=== PATIENT | female | born 1970 | race Caucasian/White ===

== ENCOUNTER → 2019-01-18 14:07 | Outpatient (CLI) | payer MEDICAID, SELFPAY ==
--- NOTE | 2019-01-18 14:13 | RAD_ITS ---
STUDY: X-RAY - LUMBAR SPINE REASON FOR EXAM: Female, 48 years old. Low back pain TECHNIQUE: 5 view(s) of the lumbar spine were obtained. COMPARISON: None FINDINGS: There is no evidence of fracture or dislocation in the lumbar spine. The vertebral body heights are well-maintained. Mild disc space loss is present at the L5-S1 level. Mild osteophytosis is present from L4 through S1. RAD/L/S Spine Min 4 Views IMPRESSION: No fracture or dislocation in the lumbar spine. Mild degenerative changes from L4 through S1. Electronically Signed: Norris Morocho, at 17:44 EDT Tel , Service support ,
== END ==
PROVIDERS: Family Provider Family Medicine; PCP Family Medicine; Referring Provider Nurse Practitioner Adult Health; Visit Provider Nurse Practitioner Adult Health
DX: M54.5 Low back pain (principal)
CPT/HCPCS: 72110

== ENCOUNTER → 2019-02-09 12:39 | Outpatient (CLI) | payer MEDICAID, SELFPAY ==
--- NOTE | 2019-02-09 12:42 | BI_ITS ---
MAMMOGRAPHY - BILATERAL SCREENING REASON FOR EXAM: Female, 48 years old. Routine annual screening examination. PERTINENT HISTORY: Non-contributory. TECHNIQUE: Digital bilateral breast lauro (3D mammographic acquisition) in the CC and MLO projections. 2-D mediolateral oblique (MLO) and craniocaudad (CC) views of both breasts were obtained. CAD: Full Field Digital Mammography with Computer Added Detection was performed. COMPARISON: Comparison is made with prior study dated June 05, 2016. FINDINGS: Breast Composition: The breasts are extremely dense, which lowers the sensitivity of mammography. There are no dominant masses or suspicious calcifications. No other significant abnormalities are identified. There has been no significant change since the prior study. BI/SCREEN MAMM (CAD) W/LAURO BILAT IMPRESSION: Stable bilateral screening mammogram. Yearly follow-up mammogram recommended. (A) ASSESSMENT CATEGORY: BIRADS Category 1: Negative. A letter regarding these results will be sent to the patient by the facility within 30 days. Approximately 10% of breast cancers are not detected by mammography. A normal mammogram should not delay biopsy of a clinically suspicious abnormality. [id number] Electronically Signed: Franklin Hill, at 14:19 EDT , Service support ,
== END ==
PROVIDERS: Family Provider Family Medicine; PCP Family Medicine; Referring Provider Nurse Practitioner Adult Health; Visit Provider Nurse Practitioner Adult Health
DX: Z12.31 Encounter for screening mammogram for malignant neoplasm of breast (principal)
CPT/HCPCS: 77063; 77067

== ENCOUNTER 2019-07-07 11:00 | Outpatient (RCR) | payer MEDICAID, SELFPAY ==
--- NOTE | 2019-06-29 16:27 | HP.PTEVAL_ITS ---
Patient's Visit Information JANIS PAGE is a 48 year old F referred to Physical Therapy by ALMA ROSA Ibarra with a diagnosis of DEGENERATIVE OF LUMBOSACRAL DISC,LUMBAR RADICULOPATHY,STENOSIS. Date of Evaluation: 06/29/19 Physical Therapist: Kvng San, PT, Cert MDT, OCS - Visit Plan Frequency: 2x /Week Duration: 4 Weeks Plan: PATIENT IS HIGH IRRITABLE. PT INTERVENTIONS DLS,POSTURAL EX'S ,LE FLEXABLITY,LE STRENGTGHENING ,MODALTIES NEEDED - Subjective Findings: This 48 y/o female presents to physical therapy with lumbar pain. Patient has lumbar pain about 1 year 1/2. Patient intially see family DR tuttle mmeded pain management. Patient had x-rays DDD. Patient recommeded PT. Patient pain located symmtrical lumbar radiates right leg. Aggravating standing,walking,bending,lufting ,getting up from chair. Alleviating factors mobic. Occassional ,parathesia/tingling. Bowel/bladder -. Coughing/sneezing-. Patient pain affects job demands ,ADL'S and housework tasks. Patient pain affects QOL. VOCATION: unemployed. SOCAIL: single - Pain Bilateral Back Pain Intensity (Out of 10): 6 Pain Intensity Range: 10 - Objective POSTURE: mild foward posture. GAIT: reciprocal pattern. PALAPTION: tender L-S ,paraspinals. SYMMTRIES: align. MMT: quads/hams/hip 4-/5,ankle 4/5. FLEXABLITY: hams mild tight. LUMBAR ROM: flexion mod loss pain,severe loss extension,side glides mod loss. MUSCULAR ENDURANCE: abdominals poor - Special Tests L/S Slump test left side: Negative L/S Slump test right side: Negative L/S Left Straight Leg Raise: Positive L/S Right Straight Leg Raise: Positive Lumbar Standing: Flexion - Mechanical Response: No effect Lumbar Standing: Flexion - Symptoms During Testing: Increases Lumbar Standing: Flexion - Symptoms After Testing: Worse Lumbar Standing: Extension - Mechanical Response: No effect Lumbar Standing: Extension - Symptoms During Testing: Increases Lumbar Standing: Extension - Symptoms After Testing: Worse Lumbar Standing: Right Side Glides - Mechanical Response: No effect Lumbar Standing: Right Side [place] - Symptoms During Testing: No effect Lumbar Standing: Right Side [place] - Symptoms After Testing: No effect Lumbar Standing: Left Side [place] - Mechanical Response: No effect Lumbar Standing: Left Side [place] - Symptoms During Testing: No effect Lumbar Standing: Left Side [place] - Symptoms After Testing: No effect - Goals Goal 1:: Incdependant with HEP. Goal Time Frame: 4-6 Weeks Goal 2:: Decrease lumbar pain by 50% or > to improve function Goal Time Frame: 4-6 Weeks Goal 3:: Patient to improve lumbar ROM for function of recovery Goal Time Frame: 4-6 Weeks Goal 4:: Patient to improve LE strength 4/5 to improve function. Goal Time Frame: 4-6 Weeks Goal 5:: Patient to improve back owestry score by 5 points or > to improve function. Goal Time Frame: 4-6 Weeks - Rehabilitation Potential Physical Therapy Diagnosis: This patient has severe pain lumbar with poor ROM ,decrease strength,poor function of recovery impairs ADL'S and housework tasks thus benifit from skilled PT Rehabilitation Potential: Fair - Anticipated Interventions Patient/Client Instruction: Educate patient on: Condition, Plan of Care For the Purpose of:: To decrease pain, To increase ROM, To improve muscle performance and motor function, To improve ability to perform ADL's, To increase tolerance to activity/condition/position, To improve ability of physical actions for home/community/work/leisure, To improve health of tissue, To decrease soft tissue restriction, To increase flexibility/ROM, To improve ability to perform tasks related to life management Therapeutic Exercise to Include: Strength training, Postural training, Flexibilty training, Active ROM, Dynamic Lumbar Stabilization For the Purpose of:: To decrease pain, To increase ROM, To improve muscle performance and motor function, To improve ability to perform ADL's, To increase tolerance to activity/condition/position, To improve ability of physical actions for home/community/work/leisure, To increase flexibility/ROM, To improve ability to perform tasks related to life management TENS: Yes IF ES: Yes Cryotherapy (ice pack, ice massage): Yes Thermo therapy (hot pack): Yes Ultrasound (thermal/non thermal): Yes For the Purpose of:: To decrease pain, To decrease swelling/inflammation, To increase ROM, To improve nutrient delivery to tissue, To increase oxygenation perfusion, To improve health of tissue, To decrease soft tissue restriction Thank you for the opportunity to evaluate your patient. For Medicare and Medicare HMO plans, please review the plan of care and approve it. It will need to be FAXED BACK to us at [phone] for Medicare purposes. For Medicare only, by signing this I certify the plan of care. Please let me know if there are questions or concerns regarding this plan of care. Physician Signature: Date:
--- NOTE | 2019-08-18 09:17 | HP.PT.NRP ---
JANIS PAGE was seen in my office for initial evaluation on 06/29/19. The following Plan of Care was established for this patient: Initial Frequency: 2x /Week Initial Duration: 4 Weeks Patient/Client Instruction: Educate patient on: Condition, Plan of Care For the Purpose of:: To decrease pain, To increase ROM, To improve muscle performance and motor function, To improve ability to perform ADL's, To increase tolerance to activity/condition/position, To improve ability of physical actions for home/community/work/leisure, To improve health of tissue, To decrease soft tissue restriction, To increase flexibility/ROM, To improve ability to perform tasks related to life management Therapeutic Exercise to Include: Strength training, Postural training, Flexibilty training, Active ROM, Dynamic Lumbar Stabilization For the Purpose of:: To decrease pain, To increase ROM, To improve muscle performance and motor function, To improve ability to perform ADL's, To increase tolerance to activity/condition/position, To improve ability of physical actions for home/community/work/leisure, To increase flexibility/ROM, To improve ability to perform tasks related to life management TENS: Yes IF ES: Yes Cryotherapy (ice pack, ice massage): Yes Thermo therapy (hot pack): Yes Ultrasound (thermal/non thermal): Yes For the Purpose of:: To decrease pain, To decrease swelling/inflammation, To increase ROM, To improve nutrient delivery to tissue, To increase oxygenation perfusion, To improve health of tissue, To decrease soft tissue restriction This patient was last seen in our office 07/07/19. Pertinent comments regarding their Physical therapy will appear below: Patient seen for PT for back pain for HEP. But due to COVID 19 D/C At this point I will be discontinuing this patient from physical therapy. I would be happy to see this patient again in the future if found appropriate by the physician. Thank you! Kvng San, PT, Cert MDT, OCS
== END 2019-07-07 19:00 | disposition home or self-care (01) ==
LOC: PT 11:00
PROVIDERS: PCP Family Medicine; Referring Provider Nurse Practitioner Family; Visit Provider Nurse Practitioner Family
DX: M51.17 Intervertebral disc disorders with radiculopathy, lumbosacral region (principal); M47.27 Other spondylosis with radiculopathy, lumbosacral region; M48.07 Spinal stenosis, lumbosacral region; M46.96 Unspecified inflammatory spondylopathy, lumbar region
CPT/HCPCS: 97014; 97110; 97162; G0283

== ENCOUNTER → 2020-02-11 13:03 | Outpatient (CLI) | payer MEDICAID, SELFPAY ==
--- NOTE | 2020-02-11 13:05 | BI_ITS ---
MAMMOGRAPHY - BILATERAL SCREENING REASON FOR EXAM: Female, 49 years old. Routine annual screening examination. PERTINENT HISTORY: Non-contributory. TECHNIQUE: Digital bilateral breast lauro (3D mammographic acquisition) in the CC and MLO projections. 2-D mediolateral oblique (MLO) and craniocaudad (CC) views of both breasts were obtained. CAD: Full Field Digital Mammography with Computer Added Detection was performed. COMPARISON: Comparison is made with prior examination dated 02/09/2019 and 06/05/2016. FINDINGS: Breast Composition: The breasts are extremely dense, which lowers the sensitivity of mammography. There are no dominant masses or suspicious calcifications. Stable benign appearing right axillary lymph node. No other significant abnormalities are identified. There has been no significant change since the prior study. BI/SCREEN MAMM (CAD) W/LAURO BILAT IMPRESSION: Stable bilateral screening mammogram. Yearly follow-up mammogram recommended. (A) ASSESSMENT CATEGORY: BIRADS Category 2: Benign. A letter regarding these results will be sent to the patient by the facility within 30 days. Approximately 10% of breast cancers are not detected by mammography. A normal mammogram should not delay biopsy of a clinically suspicious abnormality. [id number] Electronically Signed: Franklin Hill, at 14:10 EDT , Service support ,
== END ==
PROVIDERS: PCP Family Medicine; Referring Provider Family Medicine; Visit Provider Family Medicine
DX: Z12.31 Encounter for screening mammogram for malignant neoplasm of breast (principal)
CPT/HCPCS: 77063; 77067

== ENCOUNTER 2020-08-17 12:13 | Emergency (ER) | payer MEDICAID, SELFPAY ==
[2020-08-17 12:14] VITALS: BP 119/72; PULSE 118; RESP 16; TEMP 36.4; O2SAT 97; BMI 20.9
--- NOTE | 2020-08-17 12:29 | RAD_ITS ---
STUDY: X-RAY CHEST REASON FOR EXAM: Female, 49 years old. Fever and cough TECHNIQUE: Single AP portable view of the chest. COMPARISON: Comparison is made with prior study 11/30/2016. FINDINGS: Hyperinflation. The lungs are clear. There is no demonstrated pleural abnormality. Normal size heart. Normal mediastinum and sol. Normal visualized pulmonary arteries. Normal visualized aortic arch and descending thoracic aorta. Normal visualized thoracic spine. Normal visualized ribs, clavicles, and shoulders. There is no demonstrated abnormality of the visualized soft tissue structures of the upper abdomen. RAD/Chest 1 View (Portable) IMPRESSION: Hyperinflation. The lungs are clear. Electronically Signed: Franklin Hill MD at 13:13 EDT , Service support ,
--- NOTE | 2020-08-17 12:30 | ED.VISSUMM ---
- ER Visit Summary Date of Service: 08/17/20 Chief Complaint: Subjective fever and chills History of Present Illness: The patient is a 49 F has medical history of degenerative disc disease and prior hysterectomy. Patient states for 2 days has had subjective fever and chills. She denies any nausea, vomiting or diarrhea. Says she had a mild earache on the right. Mild nonproductive cough. She denies sore throat. She denied any dysuria to me. Does state that she has had body aches. Did not get a Covid vaccination as of yet. Denies any abdominal pain. Physical Examination: Middle-aged female no acute distress vital signs stable afebrile. Currently temperature 97.5 orally. Pulse ox 97% on room air no signs hypoxia. She is in no distress. H EENT exam unremarkable. Moist mucous membranes. Posterior pharynx unremarkable. Neck nontender no meningismus. No lymphadenopathy. Lungs clear to auscultation bilaterally. Heart regular rhythm rate about 115 no murmur. Chest were nontender. Abdomen soft nontender normal bowel sounds no peritoneal signs. Back nontender. No CVA tenderness. Patient is moving all 4 extremities. Neurovascularly intact. No edema. No cords. Skin no rashes. Neurologically she is awake alert with no focal motor deficits. Test Results: Chest x-ray portable 1 view interpreted by myself and radiology shows no acute abnormality. No infiltrate. Normal cardiac silhouette. CBC white count of 2.8. Hemoglobin 14. No bands. Chemistries unremarkable normal creatinine and gap. UA negative no signs of infection no nitrates or white cells no bacteria lactate normal at 0.8. Rapid Covid negative. Repeat exam patient is doing well. She clinically does not look septic. Her exam is unchanged. She and I discussed all of her test results. She is comfortable being discharged home. Emergency Department Course and Treatment: Middle-aged female with subjective fever and chills. No objective findings of a bacterial infection at this time. She will undergo laboratory evaluation with chest x-ray and urinalysis. Treated with IV fluids. Treatment Plan: Symptomatic treatment. Plenty of fluids and rest. Tylenol and Motrin as needed. Follow-up if not improving or return if feeling worse. Disposition: Discharge Impression: Fever Secondary to viral syndrome This note was generated with [employer] software. It may contain incorrect words, spelling, and punctuation that were not noted in review of the chart prior to signing ED Disposition - Plan for ED Patient: Referrals: Gee Reid MD [STAFF PHYSICIAN] -
[2020-08-17] MEDS: 0.9% Normal Saline 1,000 ML 1000 ML IV (12:52)
[2020-08-17 13:03] LABS: Absolute Lymphocyte Count 0.73 X10^3/uL (0.83-4.51); Absolute Neutrophil Count 1.7 X10^3/uL (2.0-7.7); Basophil# 0.02 X10^3/uL; Basophil% 0.7 % (0-1); Eosinophil# 0.01 X10^3/uL; Eosinophils% 0.4 % (0-5); Lymphocyte # 0.73 X10^3/ul (0.83-4.51); Lymphocyte % 26.2 % (19-41); Mean Corp Hgb Conc 32.6 g/dL (32-36); Mean Corpuscular Hgb 30.4 pg (27.0-32.0); Mean Corpuscular Volume 93.5 fL (81-99); Mean Platelet Vol. 10.2 fl (6.2-12.0); Monocyte# 0.34 X10^3/uL; Monocyte% 12.2 % (0-10); NRBC Flagged by Analyzer 0 % (0-5); Neutrophil # 1.68 X10^3/uL (2.7-7.7); Neutrophil % 60.1 % (47-70); Platelet Count 197 K/mm3 (150-450); RBC Distribution Width CV 13.4 % (11.6-14.6); RBC Distribution Width SD 45.6 fl (35.1-43.9); White Blood Count 2.8 K/mm3 (4.4-11.0)
[2020-08-17 13:17] LABS: Anion Gap 4 (5-15); BUN 8 mg/dL (7-18); BUN/Creat Ratio 7.1 RATIO (10-20); Calcium,Total 8.7 mg/dL (8.5-10.1); Chloride 102 mmol/L (98-107); Creatinine, Serum 1.13 mg/dL (0.55-1.02); EST Glomerular Filtration Rate 54 mL/min (>60); Est Glom Filt Rate - Afr Amer 66 mL/min (>60); Estimated Creatinine Clearance 56.06 ml/min; Glucose 83 mg/dL (74-106); Potassium 3.9 mmol/L (3.5-5.1); Sodium Level 134 mmol/L (136-145)
[2020-08-17 13:26] LABS: Lactic Acid 0.8 mmol/L (0.4-1.9)
[2020-08-17] MEDS: Acetaminophen 500 MG Tablet 1000 MG PO (13:41)
[2020-08-17 13:44] VITALS: BP 99/60; PULSE 80; RESP 18; TEMP 38.1; O2SAT 100
[2020-08-17 14:19] LABS: Bacteria 0 SEEN /hpf (None Seen); Mucous, Urine 0 SEEN /hpf (<or=2+); Red Blood Cells-Urine 0 SEEN /hpf (0-5); White Blood Cells 0 SEEN /hpf (0-5)
[2020-08-17 14:29] LABS: Color, Urine Yellow (Yellow); Glucose, Dipstick Normal (Normal); Ketone-Dipstick Negative (Negative); Leukocyte Esterase-Dipstick Negative /ul (Negative); Nitrite-Dipstick Negative (Negative); Occult Blood-Urine 10 /ul (Negative); Protein-Dipstick Negative (Negative); Urine Bilirubin Dipstick Negative (Negative); Urine Clarity Sl. Cloudy (Clear); Urine Urobilinogen Normal (Normal)
[2020-08-17 14:39] LABS: Squamous Epithelial Cells - UA 0-5 SEEN /hpf (5-10)
--- NOTE | 2020-08-17 14:50 | ED.DEP ---
ED Disposition - Plan for ED Patient: Disposition: Home or Assisted Living Instructions: ED Viral Syndrome (Adult) Referrals: Gee Reid MD [STAFF PHYSICIAN] - 3-5 Days if not improving Additional Instructions: Plenty of fluids and rest. Tylenol and Motrin as needed. Follow-up with your doctor if not improving. Return emergency department feeling a lot worse.
== END 2020-08-17 15:01 | disposition home or self-care (01) ==
PROVIDERS: Emergency Provider Emergency Medicine; PCP Family Medicine
DX: R50.9 Fever, unspecified (principal); B34.9 Viral infection, unspecified; F17.200 Nicotine dependence, unspecified, uncomplicated
CPT/HCPCS: 71045; 80048; 81001; 83605; 85025; 87426; 99284; J7030

== ENCOUNTER → 2020-09-18 15:36 | Outpatient (CLI) | payer MEDICAID, SELFPAY ==
--- NOTE | 2020-09-18 15:40 | RAD_ITS ---
STUDY: X-RAY - RIGHT HAND, ATTENTION SECOND FINGER REASON FOR EXAM: Female, 49 years old. PAIN TECHNIQUE: 4 view(s) of the finger were obtained. COMPARISON: None. FINDINGS: No acute fracture, dislocation or osseous destruction. No significant joint space narrowing. No significant productive changes. No significant soft tissue swelling. RAD/Finger(s) Min 2 Views IMPRESSION: Second digit intact Electronically Signed: Derek Alvarenga DO at 8:58 EDT Tel , Service support ,
== END ==
PROVIDERS: PCP Family Medicine; Referring Provider Family Medicine; Visit Provider Family Medicine
DX: M79.644 Pain in right finger(s) (principal)
CPT/HCPCS: 73140

== ENCOUNTER 2020-10-18 13:00 | Outpatient (RCR) | payer MEDICAID, SELFPAY ==
--- NOTE | 2020-06-02 15:21 | HP.PTEVAL ---
Patient's Visit Information JANIS PAGE is a 49 year old F referred to Physical Therapy by Dr. Maria T Menezes MD with a diagnosis of LBP. Date of Evaluation: 06/02/20 Physical Therapist: SHANNAN Nair - Visit Plan Frequency: 2x /Week Duration: 6 Weeks Plan: 2X/ week for 6 weeks for Neutral spine core stability and then progress to some extension biased exercises, LE strengthening with ab bracing, postural exercises, general mobility with HEP. May use heat as needed post treatment. - Subjective Pt reports that her Low back hurts and B butt bones hurts. 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 IF she sits wrong, moves wron it cane hurt. She got an x-ray. Current symptoms: Her waist on her back and her butt bone on the R hurts. She has to do her day slow cause she can not do what she used to do. She has to watch how long she sits and what she sits on. The X-ray showed deteriorating discs. wants her to go to PT and see how she does. She has been having trouble with her bowls do not move also. She takes x-lax and fiber meds for that but she feels that that is realted to her back as well but does not. pushed on hr back during the exam and her bowls are moving better and now she thinks it is because of her back. 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 In and out of her car feels it pull in her back. She feels that she gets crushing in her spine when she bends forward. She does not wear shoes that have to tie cause she can't do it. Stairs: she has a few steps at home with a railing. She has no N&T. She has no weakness in her legs currently. She does not want to do AT now cause it is too cold out now. Pt reports that she has had to adjust her life to being slow so she is not in pain. If pt sleeps on her R side it will wake her up. - Pain Back pain Pain Intensity (Out of 10): 4 R hip pain Pain Intensity (Out of 10): 3 - Objective Gait: walks with a normal gait pattern. Trunk AROM: Flexion 50%, Ext to neutral, SB B 25%, Rot B 25%. L LE MMT: hip flex 4/5, knee ext 4/5, Knee flexion 4-/5, hip abd 4/5, hip ext 3-/5. R LE MMT: hip flex 4/5, knee ext 4/5, knee flexion 4/5, hip abd 4/5, hip ext 3-/4. Patellar DTR's: B 2+/3. Prone on elbows: increase tightness across the LB after being in that position for 15 seconds. Bridges: pt is not able to do a bridge due to pain and weakness. Sit to stand: SLR... + on the R for R sided LB and R hip pain and - on the L. Slump test... negative B - Goals Goal 1:: I HEP Goal Time Frame: 4-6 Weeks Goal 2:: Increase trunk AROM by 25% in each plane (Trunk AROM: Flexion 50%, Ext to neutral, SB B 25%, Rot B 25%) Goal Time Frame: 4-6 Weeks - Rehabilitation Potential Rehabilitation Potential: Good - Anticipated Interventions Patient/Client Instruction: Educate patient on: Condition For the Purpose of:: To decrease pain, To increase ROM, To improve nutrient delivery to tissue, To improve muscle performance and motor function, To improve ability to perform ADL's, To increase tolerance to activity/condition/position, To improve ability of physical actions for home/community/work/leisure, To improve gait and locomotor functions, To improve health of tissue, To decrease soft tissue restriction, To increase flexibility/ROM Therapeutic Exercise to Include: Strength training, Postural training, Flexibilty training, Gait and locomotor training, Neuromotor development, Passive ROM, Active ROM, Dynamic Lumbar Stabilization, [place] Exercises For the Purpose of:: To decrease pain, To decrease swelling/inflammation, To increase ROM, To improve nutrient delivery to tissue, To improve muscle performance and motor function, To improve ability to perform ADL's, To increase tolerance to activity/condition/position, To improve performance and independence with ADL's, To decrease level of supervision to perform tasks, To improve ability of physical actions for home/community/work/leisure, To improve health of tissue, To decrease soft tissue restriction, To increase flexibility/ROM Functional Training to Include: Gait training For the Purpose of:: To improve gait and locomotor functions Manual Therapy Techniques to Include: Passive ROM, Soft tissue mobilization For the Purpose of:: To decrease pain, To increase ROM, To improve nutrient delivery to tissue, To improve muscle performance and motor function, To improve ability to perform ADL's, To increase tolerance to activity/condition/position, To decrease soft tissue restriction, To increase flexibility/ROM Thermo therapy (hot pack): Yes For the Purpose of:: To increase ROM, To improve nutrient delivery to tissue, To increase oxygenation perfusion Thank you for the opportunity to evaluate your patient. For Medicare and Medicare HMO plans, please review the plan of care and approve it. It will need to be FAXED BACK to us at [phone] for Medicare purposes. For Medicare only, by signing this I certify the plan of care. Please let me know if there are questions or concerns regarding this plan of care. Physician Signature: Date:
--- NOTE | 2020-10-18 13:35 | HP.PTDCSUM ---
It has been my pleasure to treat JANIS PAGE referred by Dr. Maria T Menezes MD, with the diagnosis of LBP for a total of 14 visit(s). Discharge Date: 10/18/20 Please see the following information for a summary of their discharge status. Subjective: Pt reports that she likes the exercises she is doing at home. Back pain Pain Intensity (Out of 10): 2 R hip pain Pain Intensity (Out of 10): 0 % Improvement: 85 Objective/Function: Pt did HEP without any signs of pain. She verbally understood HEP and issued pictures and green t-band for mid row ADDED BRIDGES for home. Trunk AROM: flex 50%, ext 25%, SB B 75% Goal 1:: I HEP Goal Progress: Goal Met Goal 2:: Increase trunk AROM by 25% in each plane (Trunk AROM: Flexion 50%, Ext to neutral, SB B 25%, Rot B 25%) Goal 3:: Be able to tolerate core stability exercises in standing Goal Progress: Goal Met Plan: Give additional HEP next visit. 2X/ week for 6 weeks for Neutral spine core stability and then progress to some extension biased exercises, LE strengthening with ab bracing, postural exercises, general mobility with HEP. May use heat as needed post treatment. Discharge Comments: DC PT to HEP If there are questions or concerns regarding this patient's physical therapy, please feel free to call me at [phone]. Thank you for the referral of this patient. Sincerely, Martha Kimball, MPT
== END 2020-10-18 19:00 | disposition home or self-care (01) ==
LOC: PT 13:00
PROVIDERS: PCP Family Medicine; Referring Provider Family Medicine; Visit Provider Family Medicine
DX: M54.5 Low back pain (principal)
CPT/HCPCS: 97110; 97161

== ENCOUNTER → 2022-03-05 | Outpatient (CLI) | payer MEDICAID, SELFPAY ==
--- NOTE | 2022-03-05 17:18 | MRI_ITS ---
STUDY: MRI BRAIN WITH AND WITHOUT CONTRAST REASON FOR EXAM: Female, 51 years old. new onset migraine TECHNIQUE: Standardized multiplanar fat and water weighted pulse sequences were obtained. IV 13ml Clariscan was administered for the contrast portion of the examination. COMPARISON: None. FINDINGS: Normal size of the ventricles and extra-axial spaces for the patient''s age. Normal white matter tracts of the supratentorial brain. Normal bilateral basal ganglia. Normal thalami. There is no extra-axial fluid accumulation. Normal flow voids within the major intracranial circulation suggesting patency by spin echo criteria. Normal venous enhancement. There is no enhancing intra-axial or extra-axial abnormality. Normal sella turcica, pituitary gland, infundibular stalk, optic chiasm and hypothalamus. Normal tectal plate and pineal gland. Normal midbrain, dusty and medulla. Normal cerebellum. Normal basal cisterns. Normal bilateral temporal bones. Normal bilateral internal auditory canals. No demonstrated orbital abnormality, within the constraints of a routine brain study. Normal visualized paranasal sinuses. Normal calvarium and skull base. Normal visualized soft tissue structures. Normal visualized upper cervical spine. MRI/Brain W/WO Contrast IMPRESSION: Normal unenhanced and enhanced MRI of the brain. Electronically Signed: Norris Almaraz MD at 20:55 EST ,
== END | disposition home or self-care (01) ==
PROVIDERS: PCP Family Medicine; Visit Provider Family Medicine
DX: G43.009 Migraine without aura, not intractable, without status migrainosus (principal)
CPT/HCPCS: 70553; A9575

== ENCOUNTER 2022-03-30 19:22 | Emergency (ER) | payer MEDICAID, SELFPAY ==
[2022-03-30 19:23] VITALS: BP 92/80; PULSE 109; RESP 18; TEMP 36.8; O2SAT 100; BMI 21.7
--- NOTE | 2022-03-30 19:37 | EX.ED.VIS.UR ---
HPI HPI - URI History of Present Illness Chief Complaint: Nausea/Vomiting Narrative Narrative: 51-year-old female presenting with cough, chills, body aches which started on . She states that she has Naprosyn at home and is only been trying this sporadically. She states she does not have any Tylenol and was able to get any. She is not sure what her temperature has actually been. When she arrived to the emergency room she stated that she started to have vomiting. She has not been vomiting for the last couple days although she does admit to decreased p.o. intake. She is making urine and stool. She does not have any chest pain or shortness of breath but does admit to a cough that is nonproductive. No abdominal pain. She has no urinary complaints. ROS ROS ED Constitutional Constitutional ED: Reports chills, fever(s) and subjective Eyes Eyes: Denies change in vision ENT ENT ED: Reports rhinorrhea Cardiovascular Cardiovascular: Denies chest pain or palpitations Respiratory/Chest Respiratory/Chest: Reports cough; Denies dyspnea Gastrointestinal Gastrointestinal: Reports nausea and vomiting; Denies abdominal pain Genitourinary Genitourinary ED: Denies dysuria or hematuria Musculoskeletal Musculoskeletal: Denies arthralgias Integumentary Denies abscess Neurologic Neurologic: Reports headache(s); Denies paresthesias or weakness Psychiatric Psychiatric: Denies anxiety or depression PFSH [facility] Home Medications multivitamin (Daily Multiple tablet) 1 ea PO DAILY 09/10/15 [History Last Taken 11/26/16 08:00 1 tab] calcium polycarbophil 625 mg tablet (Fiber-Caps (ca polycarbophil)) 625 mg PO DAILY 11/30/16 [History Last Taken 11/30/16 08:00 625 mg] sennosides 8.6 mg-docusate sodium 50 mg tablet (Stool Softener-Stimulant Laxative) 1 tab PO BID ##30 12/03/16 [Rx Last Taken Unknown] meloxicam 15 mg tablet 15 mg PO Q6H PRN PRN Pain 1-10 Or Fever 08/17/20 [History Last Taken Unknown] Allergy/AdvReac Type Severity Reaction Status Date / Time levofloxacin [From Levaquin] Allergy Anaphylaxis Verified 03/30/22 19:23 Penicillins Allergy Anaphylaxis Verified 03/30/22 19:23 Social History Smoking Status: Current every day smoker tobacco type: cigarettes EXAM Physical Exam Const Vital Signs: 03/30/22 19:23 Temperature 98.3 F Temperature Source Temporal Pulse Rate 109 H Respiratory Rate 18 Blood Pressure 92/80 Blood Pressure Mean 84 Pulse Ox 100 Oxygen Delivery Method Room Air Positive well nourished General Appearance ED: NAD; Negative for pallor HEENT Reports moist mucous membranes normocephalic Eyes PERRL and EOMs intact bilaterally Neck no lymphadenopathy and no meningeal signs Resp normal respiratory effort and clear to auscultation bilaterally Auscultation: Negative for rales, rhonchi or wheezes Cardio Rate: tachycardic Rhythm: regular rhythm GI non-tender Extremity normal to inspection Neuro oriented x3 and CN's II-XII intact bilaterally Sensorium / Orientation: alert Psych mental status grossly normal Skin General Skin Exam: Negative for jaundice or pallor MDM MDM MDM Narrative Medical decision making narrative: 51-year-old female presenting with cough, fever, chills, myalgias. She reports she started vomiting when she got to the emergency room. She states she does feel like she is dehydrated because she has decreased p.o. intake. No IV was established and she had her normal saline as well as Zofran and Toradol. Will obtain basic lab work and viral testing. CBC shows leukopenia. Otherwise this is within normal limits. Electrolytes are normal. Creatinine 1.12 and at baseline. LFTs are normal. I obtained a chest x-ray and on my interpretation there is no acute cardiopulmonary process and radiology interpreted this and agrees. Patient tested negative for RSV and COVID today but is positive for influenza A. She is feeling improved after treatment. I will discharge her home with Zofran. She is to alternate Tylenol and ibuprofen. Impression: 1. Nausea/vomiting 2. Leukopenia 3. Influenza A Lab Data Attestation: I reviewed the patient's lab results. Labs: Laboratory Results - last 24 hr 03/30/22 03/30/22 20:00 20:00 WBC 3.5 L RBC 4.68 Hgb 14.2 Hct 42.7 MCV 91.2 MCH 30.3 MCHC 33.3 RDW Std Deviation 45.9 H RDW Coeff of Otilio 13.6 Plt Count 184 MPV 10.4 Immature Gran % (Auto) 0.300 Neut % (Auto) 57.1 Lymph % (Auto) 27.8 [place] % (Auto) 14.2 H Eos % (Auto) 0.0 Baso % (Auto) 0.6 Absolute Neuts (auto) 2.0 Absolute Lymphs (auto) 0.96 Nucleated RBC % 0 Sodium 136 Potassium 4.1 Chloride 103 Carbon Dioxide 29.0 Anion Gap 4 L BUN 11 Creatinine 1.12 H Estim Creat Clear Calc 55.63 Est GFR (MDRD) Af Amer 66 Est GFR (MDRD) Non-Af 54 L BUN/Creatinine Ratio 9.8 L Glucose 103 Calcium 9.1 Total Bilirubin 0.30 AST 35 ALT 31 Alkaline Phosphatase 67 Total Protein 7.0 Albumin 3.7 Globulin 3.3 Albumin/Globulin Ratio 1.1 Radiography Diagnostic Testing: Clinical Impression(s) from Imaging Studies Chest X-Ray 03/30/22 20:30 IMPRESSION: Normal x-ray examination of the chest. Electronically Signed: Norris Almaraz MD at 20:49 EST Reading Location ID and State: [address] [place] [address] , Service support , Discharge Plan Triage Chief Complaint: Nausea/Vomiting Other Complaint: Cold Sx Cough ED Provider: Antione Delgado Dx/Rx/DC Orders Prescriptions: No Action multivitamin [Daily Multiple] 1 EACH tablet 1 ea PO DAILY calcium polycarbophil [Fiber-Caps (ca polycarbophil)] 625 MG tablet 625 mg PO DAILY sennosides-docusate sodium [Stool Softener-Stimulant Laxat] 1 TABLET tablet 1 tab PO BID Qty: 30 0RF meloxicam 15 MG tablet 15 mg PO Q6H PRN PRN (Reason: Pain 1-10 Or Fever) Primary Care Provider: Maria T Menezes Referrals: Maria T Menezes MD [Primary Care Provider] -
[2022-03-30] MEDS: 0.9% Normal Saline 1,000 ML 999 ML IV (20:12)
[2022-03-30] MEDS: Ketorolac 15 MG/ML Vial IV (20:13)
[2022-03-30] MEDS: Ondansetron 4 MG/2 ML Vial IV (20:13)
[2022-03-30 20:25] LABS: Absolute Lymphocyte Count 0.96 X10^3/uL (0.83-4.51); Basophil# 0.02 X10^3/uL; Basophil% 0.6 % (0-1); Hematocrit 42.7 % (37-47); Hemoglobin 14.2 g/dL (12.0-15.0); Lymphocyte # 0.96 X10^3/ul (0.83-4.51); Lymphocyte % 27.8 % (19-41); Mean Corp Hgb Conc 33.3 g/dL (32-36); Mean Corpuscular Hgb 30.3 pg (27.0-32.0); Mean Corpuscular Volume 91.2 fL (81-99); Mean Platelet Vol. 10.4 fl (6.2-12.0); Monocyte# 0.49 X10^3/uL; Monocyte% 14.2 % (0-10); NRBC Flagged by Analyzer 0 % (0-5); Neutrophil # 1.97 X10^3/uL (2.7-7.7); Neutrophil % 57.1 % (47-70); Platelet Count 184 K/mm3 (150-450); RBC Distribution Width CV 13.6 % (11.6-14.6); RBC Distribution Width SD 45.9 fl (35.1-43.9); Red Blood Count 4.68 M/mm3 (4.2-5.4); White Blood Count 3.5 K/mm3 (4.4-11.0)
--- NOTE | 2022-03-30 20:30 | RAD_ITS ---
STUDY: X-RAY CHEST REASON FOR EXAM: Female, 51 years old. cough TECHNIQUE: AP portable COMPARISON: 08/17/2020 FINDINGS: The lungs are clear and expanded. There is no demonstrated pleural abnormality. Normal size heart. Normal mediastinum and sol. Normal visualized pulmonary arteries. Normal visualized aortic arch and descending thoracic aorta. Normal visualized thoracic spine. Normal visualized ribs, clavicles, and shoulders. There is no demonstrated abnormality of the visualized soft tissue structures of the upper abdomen. RAD/Chest 1 View (Portable) IMPRESSION: Normal x-ray examination of the chest. Electronically Signed: Norris Almaraz MD at 20:49 EST ,
[2022-03-30 21:00] LABS: ALB/GLOB Ratio 1.1 RATIO (0.9-2.4); AST(SGOT) 35 U/L (15-37); Alanine Aminotransfer ALT/SGPT 31 U/L (13-56); Albumin, Serum 3.7 g/dL (3.2-5.0); Alkaline Phosphatase 67 U/L (45-117); Anion Gap 4 (5-15); BUN 11 mg/dL (7-18); BUN/Creat Ratio 9.8 RATIO (10-20); Calcium,Total 9.1 mg/dL (8.5-10.1); Chloride 103 mmol/L (98-107); Creatinine, Serum 1.12 mg/dL (0.55-1.02); EST Glomerular Filtration Rate 54 mL/min (>60); Est Glom Filt Rate - Afr Amer 66 mL/min (>60); Estimated Creatinine Clearance 55.63 ml/min; Globulin 3.3 g/dL (2.2-4.2); Glucose 103 mg/dL (74-106); Potassium 4.1 mmol/L (3.5-5.1); Sodium Level 136 mmol/L (136-145)
== END 2022-03-30 22:06 | disposition home or self-care (01) ==
PROVIDERS: Emergency Provider Student in an Organized Health Care Education/Training Program; PCP Family Medicine; Visit Provider Student in an Organized Health Care Education/Training Program
DX: R11.2 Nausea with vomiting, unspecified (principal); J10.1 Influenza due to other identified influenza virus with other respiratory manifestations; F17.210 Nicotine dependence, cigarettes, uncomplicated; D72.819 Decreased white blood cell count, unspecified
CPT/HCPCS: 71045; 80053; 85025; 87428; 87807; 96374; 96375; 99282; J7030; A4216; J2405

== ENCOUNTER 2022-04-22 16:23 | Emergency (ER) | payer MEDICAID, SELFPAY ==
[2022-04-22 16:26] VITALS: BP 117/88; PULSE 109; RESP 14; TEMP 36.6; O2SAT 98; BMI 23.6
== END 2022-04-22 18:30 | disposition left against medical advice (07) ==
LOC: ED 21:22
PROVIDERS: PCP Family Medicine
DX: Z53.21 Procedure and treatment not carried out due to patient leaving prior to being seen by health care provider (principal)

== ENCOUNTER 2022-04-22 21:15 | Emergency (ER) | payer MEDICAID, SELFPAY ==
[2022-04-22 21:16] VITALS: BP 103/82; PULSE 98; RESP 15; TEMP 36.8; O2SAT 100; BMI 21.7
[2022-04-22 22:15] LABS: Red Blood Cells-Urine 0 SEEN /hpf (0-5)
--- NOTE | 2022-04-22 22:17 | CT_ITS ---
INDICATION: pain EXAMINATION: CT ABDOMEN AND PELVIS WITHOUT CONTRAST - CT Abdomen And Pelvis W/O Contrast Injection TECHNIQUE: Helically acquired images were obtained of the abdomen and pelvis without oral or IV contrast. A radiation dose optimization technique was used for this scan. IV Contrast dosage and agent: None. Oral contrast: None. COMPARISON: CT abdomen and pelvis 12/01/2016. FINDINGS: LOWER CHEST: Minimal dependent atelectasis. LIVER: Grossly unremarkable. GALLBLADDER AND BILIARY TREE: Grossly unremarkable. PANCREAS: Grossly unremarkable. SPLEEN: Grossly unremarkable. ADRENAL GLANDS: Grossly unremarkable. KIDNEYS AND URETERS: No calculi demonstrated. No hydronephrosis. PERITONEUM: No free air. No free fluid. BOWEL: No bowel obstruction. APPENDIX: Visualized and unremarkable. No evidence of acute appendicitis. VESSELS: Abdominal aorta is normal caliber. REPRODUCTIVE ORGANS: Uterus not identified. URINARY BLADDER: Minimally distended. ABDOMINAL WALL: Unremarkable. BONES: Degenerative changes in the lower lumbar spine. CT/Abdomen/Pelvis without Cont IMPRESSION: No acute findings. Electronically Signed: July Alexandra MD at 23:08 EST ,
[2022-04-22 22:19] LABS: Color, Urine Yellow (Yellow); Glucose, Dipstick Normal (Normal); Ketone-Dipstick 5 mg/dl (Negative); Leukocyte Esterase-Dipstick 25 /ul (Negative); Nitrite-Dipstick Negative (Negative); Occult Blood-Urine Negative /ul (Negative); Protein-Dipstick 30 mg/dl (Negative); Urine Clarity Sl. Cloudy (Clear); Urine Urobilinogen 4 mg/dl (Normal)
[2022-04-22] MEDS: 0.9% Normal Saline 1,000 ML 150 ML IV (22:20)
[2022-04-22] MEDS: Ketorolac 30 MG/ML Syringe IV (22:25)
[2022-04-22] MEDS: Ondansetron 4 MG/2 ML Vial IV (22:26)
[2022-04-22 22:34] LABS: Urine Bilirubin Dipstick 1 mg/dL (Negative)
[2022-04-22 22:35] LABS: Bacteria 1+ /hpf (None Seen); Mucous, Urine 4+ /hpf (<or=2+); Squamous Epithelial Cells - UA 0-5 SEEN /hpf (5-10); White Blood Cells 0-5 SEEN /hpf (0-5)
[2022-04-22 22:42] LABS: Absolute Lymphocyte Count 2.76 X10^3/uL (0.83-4.51); Absolute Neutrophil Count 2.9 X10^3/uL (2.0-7.7); Basophil# 0.04 X10^3/uL; Basophil% 0.6 % (0-1); Eosinophil# 0.09 X10^3/uL; Eosinophils% 1.4 % (0-5); Hematocrit 36.4 % (37-47); Hemoglobin 11.8 g/dL (12.0-15.0); Lymphocyte # 2.76 X10^3/ul (0.83-4.51); Lymphocyte % 43.5 % (19-41); Mean Corp Hgb Conc 32.4 g/dL (32-36); Mean Corpuscular Hgb 30.1 pg (27.0-32.0); Mean Corpuscular Volume 92.9 fL (81-99); Mean Platelet Vol. 10.2 fl (6.2-12.0); Monocyte# 0.52 X10^3/uL; Monocyte% 8.2 % (0-10); NRBC Flagged by Analyzer 0 % (0-5); Neutrophil # 2.93 X10^3/uL (2.7-7.7); Neutrophil % 46.1 % (47-70); Platelet Count 251 K/mm3 (150-450); RBC Distribution Width CV 13.5 % (11.6-14.6); RBC Distribution Width SD 45.7 fl (35.1-43.9); Red Blood Count 3.92 M/mm3 (4.2-5.4); White Blood Count 6.4 K/mm3 (4.4-11.0)
[2022-04-22 23:06] LABS: AST(SGOT) 18 U/L (15-37); Alanine Aminotransfer ALT/SGPT 21 U/L (13-56); Albumin, Serum 3.4 g/dL (3.2-5.0); Alkaline Phosphatase 71 U/L (45-117); Anion Gap 4 (5-15); BUN 27 mg/dL (7-18); BUN/Creat Ratio 24.1 RATIO (10-20); Calcium,Total 9.1 mg/dL (8.5-10.1); Chloride 108 mmol/L (98-107); Creatinine, Serum 1.12 mg/dL (0.55-1.02); EST Glomerular Filtration Rate 54 mL/min (>60); Est Glom Filt Rate - Afr Amer 66 mL/min (>60); Estimated Creatinine Clearance 55.63 ml/min; Globulin 3.1 g/dL (2.2-4.2); Glucose 130 mg/dL (74-106); Lipase 108 U/L (73-393); Protein, Total 6.5 g/dL (6.4-8.2); Sodium Level 139 mmol/L (136-145)
--- NOTE | 2022-04-22 23:49 | EDS_ITS ---
HPI History of Present Illness Chief Complaint: Flank Pain Detail of Chief Complaint: Back pain Informant: patient Onset/Context/Timing Onset: Today Context: Gradual Onset Current Severity: Moderate Maximum Severity: Moderate Narrative Narrative: Patient presents with back pain that started mid afternoon. She states she recently became initially that this was the cause of her back pain. She has tried Tylenol without significant improvement. She now states that she has some pain in her abdomen as well and is concerned that she may have pyelonephritis. She denies recent fall or injury. [facility] Medical History Degenerative disc disease Home Medications multivitamin (Daily Multiple tablet) 1 ea PO DAILY 09/10/15 [History Last Taken 11/26/16 08:00 1 tab] calcium polycarbophil 625 mg tablet (Fiber-Caps (ca polycarbophil)) 625 mg PO DAILY 11/30/16 [History Last Taken 11/30/16 08:00 625 mg] sennosides 8.6 mg-docusate sodium 50 mg tablet (Stool Softener-Stimulant Laxative) 1 tab PO BID ##30 12/03/16 [Rx Last Taken Unknown] meloxicam 15 mg tablet 15 mg PO Q6H PRN PRN Pain 1-10 Or Fever 08/17/20 [History Last Taken Unknown] ondansetron 4 mg disintegrating tablet 4 mg PO Q8H PRN nausea and vomiting #10 tabs 03/30/22 [Rx Last Taken Unknown] lidocaine 5 % topical patch (Lidoderm) 1 patch topical DAILY #15 ea 04/22/22 [Rx Last Taken Unknown] Allergy/AdvReac Type Severity Reaction Status Date / Time levofloxacin [From Levaquin] Allergy Anaphylaxis Verified 04/22/22 21:22 Penicillins Allergy Anaphylaxis Verified 04/22/22 21:22 Social History Smoking Status: Current every day smoker tobacco type: cigarettes ROS ROS ED Constitutional Constitutional ED: Denies chills or fever(s) Eyes Eyes: Denies change in vision or discharge from eye(s) ENT ENT ED: Denies discharge from eye(s), rhinorrhea or sore throat Cardiovascular Cardiovascular: Denies chest pain or palpitations Respiratory/Chest Respiratory/Chest: Denies cough or dyspnea Gastrointestinal Gastrointestinal: Reports abdominal pain; Denies diarrhea, nausea or vomiting Genitourinary Genitourinary ED: Reports other Details: Decreased urine output. Musculoskeletal Musculoskeletal: Reports back pain; Denies extremity pain Integumentary Denies Abrasions or rash Neurologic Neurologic: Denies headache(s) or weakness Psychiatric Psychiatric: Denies anxiety or depression Allergic/Immunologic Allergic/Immunologic ED: Denies lip swelling or urticaria EXAM Physical Exam Const Vital Signs: 04/22/22 21:16 Temperature 98.2 F Temperature Source Temporal Pulse Rate 98 Respiratory Rate 15 Blood Pressure 103/82 H Blood Pressure Mean 89 Pulse Ox 100 Oxygen Delivery Method Room Air Positive well nourished and well developed General Appearance ED: well developed HEENT Reports normocephalic and head/scalp atraumatic Eyes PERRL and EOMs intact bilaterally Neck supple Chest Wall inspection of chest normal and palpation of chest normal Resp normal respiratory effort and clear to auscultation bilaterally Cardio regular rate and regular rhythm GI non-tender Auscultation: hypoactive bowel sounds Palpation: soft Back/Spine Back/Spine Narrative: Mild tenderness in the left lumbar paraspinal musculature. No midline tenderness. No overlying skin changes. Extremity normal to inspection Neuro oriented x3 and no sensory deficits noted Sensorium / Orientation: alert Motor Exam: strength 5/5 throughout Psych mental status grossly normal Skin no rashes or lesions noted MDM MDM MDM Narrative Medical decision making narrative: Patient is given Toradol and Zofran along with IV fluids. Lab work obtained along with urinalysis. CT flank ordered. Lab Data Attestation: I reviewed the patient's lab results. Labs: Laboratory Results - last 24 hr 04/22/22 04/22/22 04/22/22 22:03 22:25 22:25 WBC 6.4 RBC 3.92 L Hgb 11.8 L Hct 36.4 L MCV 92.9 MCH 30.1 MCHC 32.4 RDW Std Deviation 45.7 H RDW Coeff of Otilio 13.5 Plt Count 251 MPV 10.2 Immature Gran % (Auto) 0.200 Neut % (Auto) 46.1 L Lymph % (Auto) 43.5 H [place] % (Auto) 8.2 Eos % (Auto) 1.4 Baso % (Auto) 0.6 Absolute Neuts (auto) 2.9 Absolute Lymphs (auto) 2.76 Nucleated RBC % 0 Sodium 139 Potassium 4.0 Chloride 108 H Carbon Dioxide 27.0 Anion Gap 4 L BUN 27 H Creatinine 1.12 H Estim Creat Clear Calc 55.63 Est GFR (MDRD) Af Amer 66 Est GFR (MDRD) Non-Af 54 L BUN/Creatinine Ratio 24.1 H Glucose 130 H Calcium 9.1 Total Bilirubin 0.40 Direct Bilirubin 0.10 AST 18 ALT 21 Alkaline Phosphatase 71 Total Protein 6.5 Albumin 3.4 Globulin 3.1 Lipase 108 Urine Color Yellow Urine Clarity Sl. Cloudy Urine pH 5.0 Ur Specific [place] 1.030 Urine Protein 30 H Urine Glucose (UA) Normal Urine Ketones 5 H Urine Occult Blood Negative Urine Nitrite Negative Urine Bilirubin 1 H Urine Urobilinogen 4 H Ur Leukocyte Esterase 25 H Urine RBC 0 SEEN Urine WBC 0-5 SEEN Ur Squamous Epith Cells 0-5 SEEN Urine Bacteria 1+ Urine Mucus 4+ Radiography Diagnostic Testing: Clinical Impression(s) from Imaging Studies Abdomen/Pelvis CT 04/22/22 22:17 IMPRESSION: No acute findings. Electronically Signed: July Alexandra MD at 23:08 EST , Treatment and Re-Evaluation Narrative: CBC reveals normal white count. Hemoglobin is 11.8. Chemistry studies reveal normal renal function with a creatinine 1.12. BUN is slightly elevated at 27. Glucose is 130. LFTs and lipase are normal. Urinalysis reveals 1+ bacteria with no nitrates and 0-5 white cells. She denies dysuria test results are all discussed with the patient. I do feel that she likely has musculoskeletal back pain and this is not urinary in etiology. She will continue Tylenol and I wrote prescription for Lidoderm patches. Return instructions given. Discharge Plan Triage Chief Complaint: Flank Pain ED Provider: Sri Mix Dx/Rx/DC Orders Clinical Impression: Back pain Instructions: ED Back Pain (Acute or Chronic) Prescriptions: New lidocaine [Lidoderm] 5 % adhesive patch,medicated 1 patch topical DAILY Qty: 15 0RF Rx Instructions: leave on most painful area for up to 12 hrs No Action multivitamin [Daily Multiple] 1 EACH tablet 1 ea PO DAILY calcium polycarbophil [Fiber-Caps (ca polycarbophil)] 625 MG tablet 625 mg PO DAILY sennosides-docusate sodium [Stool Softener-Stimulant Laxat] 1 TABLET tablet 1 tab PO BID Qty: 30 0RF meloxicam 15 MG tablet 15 mg PO Q6H PRN PRN (Reason: Pain 1-10 Or Fever) ondansetron 4 mg tablet,disintegrating 4 mg PO Q8H PRN (Reason: nausea and vomiting) Qty: 10 0RF Primary Care Provider: Maria T Menezes Referrals: Maria T Menezes MD [Primary Care Provider] - 1-2 Weeks Disposition Disposition: Home, Self Care Discharge Date/Time: 04/23/22 00:01
== END 2022-04-23 00:01 | disposition home or self-care (01) ==
PROVIDERS: Emergency Provider Emergency Medicine; PCP Family Medicine; Visit Provider Emergency Medicine
DX: M54.9 Dorsalgia, unspecified (principal); F17.210 Nicotine dependence, cigarettes, uncomplicated
CPT/HCPCS: 74176; 80048; 80076; 81001; 83690; 85025; 96361; 96374; 96375; 99283; J7030; A4216; J2405

== ENCOUNTER 2022-05-30 20:01 | Emergency (ER) | payer MEDICAID, SELFPAY ==
[2022-05-30 20:03] VITALS: BP 139/92; PULSE 110; RESP 16; TEMP 36.6; O2SAT 99; BMI 21.7
--- NOTE | 2022-05-30 20:28 | EDS_ITS ---
HPI History of Present Illness Chief Complaint: Laceration Informant: patient Onset/Context/Timing Onset: Today (JPTA) Context: Sudden Onset Timing: Continuous Quality of Pain: - (sore) Location: L ring finger Current Severity: Mild Maximum Severity: Moderate Worsened by: moving finger, palpation Relieved by: leaving alone Associated Symptoms Associated Symptoms: Positive for Parasthesia (distal to laceration); Negative for Weakness or Loss of Funtion Narrative Narrative: [id number] female states she was using some type of knife to cut some cable ties on a license plate, and in doing so accidentally cut herself in the left ring finger sustaining a laceration. Tetanus Immunization: Unknown [facility] Medical History Degenerative disc disease Home Medications multivitamin (Daily Multiple tablet) 1 ea PO DAILY 09/10/15 [History Last Taken 11/26/16 08:00 1 tab] calcium polycarbophil 625 mg tablet (Fiber-Caps (ca polycarbophil)) 625 mg PO DAILY 11/30/16 [History Last Taken 11/30/16 08:00 625 mg] sennosides 8.6 mg-docusate sodium 50 mg tablet (Stool Softener-Stimulant Laxative) 1 tab PO BID ##30 12/03/16 [Rx Last Taken Unknown] meloxicam 15 mg tablet 15 mg PO Q6H PRN PRN Pain 1-10 Or Fever 08/17/20 [History Last Taken Unknown] ondansetron 4 mg disintegrating tablet 4 mg PO Q8H PRN nausea and vomiting #10 tabs 03/30/22 [Rx Last Taken Unknown] lidocaine 5 % topical patch (Lidoderm) 1 patch topical DAILY #15 ea 04/22/22 [Rx Last Taken Unknown] Allergy/AdvReac Type Severity Reaction Status Date / Time levofloxacin [From Levaquin] Allergy Anaphylaxis Verified 05/30/22 20:02 Penicillins Allergy Anaphylaxis Verified 05/30/22 20:02 Social History Smoking Status: Current every day smoker tobacco type: cigarettes ROS ROS ED Constitutional Constitutional ED: Denies chills or fever(s) Musculoskeletal Musculoskeletal: Reports extremity pain; Denies neck pain Integumentary Reports wounds; Denies Abrasions or rash Neurologic Neurologic: Reports paresthesias; Denies weakness EXAM Physical Exam Const Vital Signs: 05/30/22 20:03 Temperature 98 F Temperature Source Temporal Pulse Rate 110 H Respiratory Rate 16 Blood Pressure 139/92 H Blood Pressure Mean 107 Pulse Ox 99 Oxygen Delivery Method Room Air Positive well nourished and well developed General Appearance ED: well developed and NAD Neck full ROM and supple Back/Spine normal ROM and normal to inspection Extremity Extremity Narrative: Laceration to the left ring finger. Most of it is at the dorsal aspect w/ part of the lac on the radial side, there is no pulsatile bleeding, extension, FDS, FDP all intact. No nail injury. No bone visible. No tendon visible. Neuro oriented x3, no focal motor deficits and no sensory deficits noted Sensorium / Orientation: alert Psych thought process normal Mood & Affect: anxious Skin Skin Narrative: 3 cm full-thickness linear laceration to the dorsal and radial aspect of the lef t ring finger middle phalanx. No joint affected. Rashes: no rashes MDM MDM MDM Narrative Medical decision making narrative: Patient's wound was repaired, it is clean, it was irrigated under pressure, dressed with bacitracin, given appropriate discharge instructions regarding self care at home and suture removal. Procedures Lacerations L ring finger: Length: 3 cm Depth: Sub Q Shape: Linear Prep: Sterile Conditions and Chlorhexadine Laceration repair: Lidocaine (1%, 2cc), Lidocaine with epi (topically only as LET), Local, Skin sutures and Wound explored (no tendon visible) Irrigated (ml): 100 Number of Sutures/Gardners: 5 Suture Information: Ethilon, Simple and 5-0 Discharge Plan Triage Chief Complaint: Laceration ED Provider: Dilan Boyd Dx/Rx/DC Orders Clinical Impression: Laceration of left ring finger, [id number] (DPT) vaccination administered at current visit Instructions: ED Laceration, Hand: All Closures Prescriptions: No Action multivitamin [Daily Multiple] 1 EACH tablet 1 ea PO DAILY calcium polycarbophil [Fiber-Caps (ca polycarbophil)] 625 MG tablet 625 mg PO DAILY sennosides-docusate sodium [Stool Softener-Stimulant Laxat] 1 TABLET tablet 1 tab PO BID Qty: 30 0RF meloxicam 15 MG tablet 15 mg PO Q6H PRN PRN (Reason: Pain 1-10 Or Fever) ondansetron 4 mg tablet,disintegrating 4 mg PO Q8H PRN (Reason: nausea and vomiting) Qty: 10 0RF lidocaine [Lidoderm] 5 % adhesive patch,medicated 1 patch topical DAILY Qty: 15 0RF Rx Instructions: leave on most painful area for up to 12 hrs Primary Care Provider: Maria T Menezes Referrals: Maria T Menezes MD [Primary Care Provider] - 10-14 Days suture removal Disposition Disposition: Home, Self Care
[2022-05-30] MEDS: Lidocaine/Epi/Tetracaine 50 ML 1 APPLIC TOPICAL (20:36)
[2022-05-30] MEDS: Diphth,Pertuss(Acell),Tet Vac 0.5 ML Vial IM (20:36)
[2022-05-30 21:53] VITALS: BP 139/110; PULSE 100; RESP 15; O2SAT 99
== END 2022-05-30 21:57 | disposition home or self-care (01) ==
PROVIDERS: Emergency Provider Emergency Medicine; PCP Family Medicine; Visit Provider Emergency Medicine
DX: S61.215A Laceration without foreign body of left ring finger without damage to nail, initial encounter (principal); W26.0XXA Contact with knife, initial encounter; Y93.89 Activity, other specified; F17.210 Nicotine dependence, cigarettes, uncomplicated; Z23 Encounter for immunization
CPT/HCPCS: 12001; 90471; 90715; 99283

== ENCOUNTER 2022-06-11 16:59 | Emergency (ER) | payer MEDICAID, SELFPAY ==
[2022-06-11 17:00] VITALS: BP 134/78; PULSE 77; RESP 14; TEMP 36.3; O2SAT 96; BMI 23.7
--- NOTE | 2022-06-11 18:20 | RAD_ITS ---
EXAM: XR LEFT FINGERS, 2 OR MORE VIEWS CLINICAL INDICATION: injury -- ring finger TECHNIQUE: Frontal, lateral and oblique views of the fingers of the left hand. This report was created using [employer] report generation technology. COMPARISON: None. FINDINGS: BONES/JOINTS: Unremarkable. No acute fracture. No subluxation. Normal alignment. Preservation of the joint space. No sclerotic or destructive changes observed. SOFT TISSUES: Unremarkable. No soft tissue swelling or gas. No radiopaque foreign body. RAD/Finger(s) Min 2 Views IMPRESSION: Negative x-rays of the visualized left fingers. Electronically Signed: Lazaro Zapata MD at 18:41 EST ,
--- NOTE | 2022-06-11 18:24 | EX.ED.GENINJ ---
HPI History of Present Illness Chief Complaint: Laceration Informant: patient Narrative Narrative: [id number] female presents dehiscence of wound left ring finger today. Seen a couple weeks ago for laceration she had sutures she follow-up today with her doctor had sutures removed. States he was discomfort however at home was using a car joshua when she thinks she twisted it and it pulled open. Bleeding finally controlled on arrival to the ED. Patient not on any blood thinners. States discomfort of the finger states feels pain into the bone. PFSH PFSH Medical History Degenerative disc disease Home Medications multivitamin (Daily Multiple tablet) 1 ea PO DAILY 09/10/15 [History Last Taken 11/26/16 08:00 1 tab] calcium polycarbophil 625 mg tablet (Fiber-Caps (ca polycarbophil)) 625 mg PO DAILY 11/30/16 [History Last Taken 11/30/16 08:00 625 mg] sennosides 8.6 mg-docusate sodium 50 mg tablet (Stool Softener-Stimulant Laxative) 1 tab PO BID ##30 12/03/16 [Rx Last Taken Unknown] meloxicam 15 mg tablet 15 mg PO Q6H PRN PRN Pain 1-10 Or Fever 08/17/20 [History Last Taken Unknown] ondansetron 4 mg disintegrating tablet 4 mg PO Q8H PRN nausea and vomiting #10 tabs 03/30/22 [Rx Last Taken Unknown] lidocaine 5 % topical patch (Lidoderm) 1 patch topical DAILY #15 ea 04/22/22 [Rx Last Taken Unknown] Allergy/AdvReac Type Severity Reaction Status Date / Time levofloxacin [From Levaquin] Allergy Anaphylaxis Verified 06/11/22 16:59 Penicillins Allergy Anaphylaxis Verified 06/11/22 16:59 Social History Smoking Status: Current every day smoker tobacco type: cigarettes ROS ROS ED Constitutional Constitutional ED: Denies chills, fever(s) or sweats Eyes Eyes: Denies change in vision ENT ENT ED: Denies dysphagia or sore throat Cardiovascular Cardiovascular: Denies chest pain, leg edema, palpitations or racing heartbeat Respiratory/Chest Respiratory/Chest: Denies cough, dyspnea or dyspnea on exertion Gastrointestinal Gastrointestinal: Denies abdominal pain, diarrhea, nausea or vomiting Genitourinary Genitourinary ED: Denies dysuria, hematuria or urinary frequency Musculoskeletal Musculoskeletal: Reports other Details: Left ring finger pain ; Denies back pain or neck pain Integumentary Reports wounds; Denies rash Neurologic Neurologic: Denies headache(s), paresthesias or weakness EXAM Physical Exam Const Vital Signs: 06/11/22 17:00 Temperature 97.4 F L Temperature Source Temporal Pulse Rate 77 Respiratory Rate 14 Blood Pressure 134/78 H Blood Pressure Mean 96 Pulse Ox 96 Oxygen Delivery Method Room Air Positive well nourished and well developed General Appearance ED: well developed and NAD HEENT Reports moist mucous membranes normocephalic and atraumatic Eyes PERRL, EOMs intact bilaterally and conjunctivae normal General Eye ED: Yes normal appearance of both eyes Neck no lymphadenopathy and supple General: Negative for tenderness Chest Wall Chest: Negative for tenderness Resp normal respiratory effort and normal air movement Effort and Inspection: symmetric chest movement; Negative for respiratory distress Cardio regular rate, regular rhythm and no murmurs Peripheral Pulses: pulses 2+ throughout GI normal to inspection, nondistended, normoactive bowel sounds and non-tender Palpation: Negative for guarding or rebound tenderness present Back/Spine no CVA tenderness and no thoracic nor lumbar tenderness Extremity Extremity Narrative: Left hand ring finger: Dorsal middle phalanx 3 cm slight dehiscence of wound. There is no active bleeding. There is no deformities. Cap refill less than 3 seconds. General Extremety ED: Yes tenderness; Negative for edema General Extremity: Negative for edema Neuro oriented x3 and no sensory deficits noted Sensorium / Orientation: awake and alert Skin Skin Narrative: See above MDM MDM MDM Narrative Medical decision making narrative: Interventions / MDM: Differential diagnosis: Wound dehiscence, finger fracture Diagnosis considered but do not suspect: Cellulitis, no erythema or streaking My EKG interpretation: N/A Imaging independently reviewed and interpreted by myself: Left ring finger 3 views: No fracture or dislocation External documents reviewed: N/A Test considered but not ordered:N/A ED course: Patient slight dehiscence of the wound bleeding controlled. Concerns of fracture per patient therefore x-ray obtained and negative. She treated with ibuprofen. Wound care discussed to allow secondary healing. AlumaFoam splint provided to help with immobilization and healing process. Outpatient follow-up. All questions were answered. Re-evaluation: stable Disposition discussed with patient/family/significant other: Patient Case discussed with consulting clinician: N/A Radiography Diagnostic Testing: Clinical Impression(s) from Imaging Studies Finger X-Ray 06/11/22 18:20 IMPRESSION: Negative x-rays of the visualized left fingers. Electronically Signed: Lazaro Zapata MD at 18:41 EST Reading Location ID and State: [facility] / [place] , Service support , Discharge Plan Triage Chief Complaint: Laceration ED Provider: Jovan Do Dx/Rx/DC Orders Clinical Impression: Wound dehiscence, Finger pain, left Instructions: ED Wound Care Prescriptions: No Action multivitamin [Daily Multiple] 1 EACH tablet 1 ea PO DAILY calcium polycarbophil [Fiber-Caps (ca polycarbophil)] 625 MG tablet 625 mg PO DAILY sennosides-docusate sodium [Stool Softener-Stimulant Laxat] 1 TABLET tablet 1 tab PO BID Qty: 30 0RF meloxicam 15 MG tablet 15 mg PO Q6H PRN PRN (Reason: Pain 1-10 Or Fever) ondansetron 4 mg tablet,disintegrating 4 mg PO Q8H PRN (Reason: nausea and vomiting) Qty: 10 0RF lidocaine [Lidoderm] 5 % adhesive patch,medicated 1 patch topical DAILY Qty: 15 0RF Rx Instructions: leave on most painful area for up to 12 hrs Primary Care Provider: Maria T Menezes Referrals: Maria T Menezes MD [Primary Care Provider] - 1 Week Activity Restrictions/Additional Instructions: Wound care discussed. Keep AlumaFoam splint on your finger to allow healing. Follow-up with your doctor. Disposition Disposition: Home, Self Care Discharge Date/Time: 06/11/22 19:21
[2022-06-11] MEDS: Ibuprofen 600 MG Tablet PO (18:33)
== END 2022-06-11 19:21 | disposition home or self-care (01) ==
PROVIDERS: Emergency Provider Emergency Medicine; PCP Family Medicine; Visit Provider Emergency Medicine
DX: T81.33XA Disruption of traumatic injury wound repair, initial encounter (principal); M79.645 Pain in left finger(s); F17.210 Nicotine dependence, cigarettes, uncomplicated; X58.XXXA Exposure to other specified factors, initial encounter
CPT/HCPCS: 73140; 99283

== ENCOUNTER 2022-06-24 10:00 | Outpatient (RCR) | payer MEDICAID, SELFPAY ==
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
--- NOTE | 2022-06-24 10:31 | HP.PTDCSUM ---
It has been my pleasure to treat JANIS CHAMPION referred by Dr. Maria T Menezes MD, with the diagnosis of LBP for a total of 11 visit(s). Discharge Date: Please see the following information for a summary of their discharge status. Subjective: PATIENT REPORTS HER PAIN IS A LITTLE BIT BETTER BUT TODAY SHE DOESN'T FEEL GOOD. STATES ALL SHE DID YESTERDAY WAS CHANGE HER OIL IN HER SUV. STATES THAT GETTING UP AND DOWN FROM THE FLOOR CAUSED PAIN IN HER WAIST AND IT STILL HURTS TODAY. STATES SHE USE TO BE ABLE TO CHANGE HER OIL WITHOUT PAIN A COUPLE YEARS AGO. SHE REPORTS HER PAIN IS WORSE SOMEDAYS THAN OTHERS AND SHE HAS TROUBLE WALKING WHEN SHE FLARES IT UP LIKE TODAY. PATIENT REPORTS SHE REALLY DOESN'T KNOW HOW TO ANSWER THE QUESTION ABOUT WHAT PERCENT BETTER SHE IS. LB Pain Intensity (Out of 10): 5 R buttock Pain Intensity (Out of 10): 0 % Improvement: 75 Objective/Function: PATIENT WAS SEEN TODAY FOR RE-ASSESSMENT OF PROGRESS TOWARD THE SET PT GOALS AND THE NEED FOR FURTHER PHYSICAL THERAPY VS READINESS FOR DISCHARGE. PATIENT IS NOT OBJECTIVELY IMPROVED AND OSWESTRY SCORE IS WORSE. PHYSICIAN RE-ASSESSMENT RECOMMENDED AND PATIENT IS AGREEABLE. UPON EXAM TODAY: Observations: INDEP GAIT AND TRANSFERS. NO AD. NO LOB. Sensory deficit: CHELA LE LIGHT TOUCH SENSATION GROSSLY INTACT AND SYMMETRICAL. ROM deficit: TIGHT CHELA LE HS AND PLANTAR FLEXORS. TIGHT R HIP IR AND ER. PAIN AT THE END OF THE AVAILABLE ROM WITH R HIP ROTATION TESTING. PATIENT DENIES GROIN PAIN WITH ALL TESTING TODAY. Motor deficit: CHELA LE'S GROSSLY 5/5 WITH MMT'ING EXCEPT L HIP 4-/5 AND L KNEE FLEX 4/5 - L HIP AND L KNEE FLEXION TESTING PROVOKE R LB AND HIP PAIN. Reflexes: UNABLE TO ELICIT CHELA LE DTR'S - PATIENT IS VERY GUARDED. Dural Signs: NEGATIVE CHELA LE'S. Lumbar mvmt loss: flex - MOD. ext - MOD. R SG - MOD. L SG - MIN. PATIENT C/O INCREASED LOW BACK PAIN WITH LUMBAR ROM TESTING ALL PLANES. Core strength: POOR. Palpation: TENDERNESS WITH LIGHT PALPATION OF LOWER LUMBAR SPINE AND R PARASPINALS. INCREASED MUSCLE TONE CHELA PARASPINALS. ALSO TENDER IN R HS STARTING AT insertion. OTHER: POSITIVE R DAMIAN TEST. POSITIVE R SLR TEST. PATIENT MAY BENEFIT FROM AQUATIC THERAPY BUT RELUCTANT. Goal 1:: DECREASE C/O LOW BACK AND RIGHT LE PAIN. Goal Progress: Not Progressing Goal 2:: IMPROVE PERSONAL CARE, LIFTING, WALKING, SITTING, STANDING, SLEEP, SOCIAL LIFE, TRAVEL AND WORK/HOMEMAKING FUNCTION Goal Progress: Not Progressing Goal 3:: INSTRUCT IN PROPHYLAXIS Goal Progress: Not Progressing Plan: D/C DUE TO A LACK OF A COMBINATION OF SUBJECTIVE AND OBJECTIVE SIGNIFICANT PROGRESS. SOMETIMES CAN BE HARD TO GET CONSISTANT INFORMATION FROM PATIENT DESPITE PROMPTING. If there are questions or concerns regarding this patient's physical therapy, please feel free to call me at [phone]. Thank you for the referral of this patient. Sincerely, Missy Johnson, PT, Cert MDT Balance/Gait/Functional tests - Balance/Special Test Scores Oswestry Low Back Score: 28
== END 2022-06-24 12:41 | disposition home or self-care (01) ==
LOC: PT 10:00
PROVIDERS: PCP Family Medicine; Referring Provider Family Medicine; Visit Provider Family Medicine
DX: M54.50 Low back pain, unspecified (principal); G89.29 Other chronic pain
CPT/HCPCS: 97014; 97110; 97162; 97164; G0283

== ENCOUNTER → 2023-02-13 | Outpatient (CLI) | payer MEDICAID, SELFPAY ==
--- NOTE | 2023-02-13 12:48 | RAD_ITS ---
STUDY: X-RAY CHEST REASON FOR EXAM: Female, 52 years old. Bronchitis. TECHNIQUE: Frontal and lateral views of the chest. COMPARISON: March 30, 2022 FINDINGS: Stable hyperinflation. There is no demonstrated pleural abnormality. Normal size heart. Normal mediastinum and sol. Normal visualized pulmonary arteries. Normal visualized aortic arch and descending thoracic aorta. Normal visualized thoracic spine. Normal visualized ribs, clavicles, and shoulders. No abnormality of the visualized soft tissue structures of the upper abdomen. RAD/Chest PA and Lateral IMPRESSION: Stable hyperinflation with no acute or active cardiopulmonary disease. Electronically Signed: Nathaniel Joaquin MD at 13:40 EDT ,
== END | disposition home or self-care (01) ==
LOC: MTRAD 12:41
PROVIDERS: PCP Family Medicine; Referring Provider Family Medicine; Visit Provider Family Medicine
DX: J40 Bronchitis, not specified as acute or chronic (principal)
CPT/HCPCS: 71046

== ENCOUNTER 2023-02-18 21:49 | Emergency (ER) | payer MEDICAID, SELFPAY ==
[2023-02-18 21:51] VITALS: BP 130/88; PULSE 104; RESP 16; TEMP 36.1; O2SAT 98; BMI 23.3
--- NOTE | 2023-02-18 22:16 | EX.ED.DYSGE1 ---
HPI History of Present Illness Chief Complaint: Chest Other Informant: patient Narrative Narrative: 52-year-old female presenting to the emergency room with left lower rib pain. Patient states 3 weeks ago she developed a cough with mucus that is now a dry cough. She states that she saw primary care and had a chest x-ray that was negative. A couple days ago she began to have increased pain left lower anterior chest as well as a sharp stabbing pain in the left lower ribs posteriorly. Now she notes a protrusion from the anterior chest wall over the lower ribs. No rashes. Cough is remained dry. She originally had a fever but has since resolved. She notes pain with any type of movement, cough, or sneezing. [facility] Medical History (Updated 02/18/23 @ 22:31 by Sophia Muniz) Arthritis Degenerative disc disease Home Medications meloxicam 15 mg tablet 15 mg PO Q6H PRN PRN Pain 1-10 Or Fever 08/17/20 [History Last Taken Unknown] albuterol sulfate 90 mcg/actuation aerosol inhaler inhalation 02/18/23 [History Last Taken Unknown] lidocaine 5 % topical patch (Lidoderm) 1 patch topical DAILY PRN chest wall pain #15 ea 02/18/23 [Rx Last Taken Unknown] Allergy/AdvReac Type Severity Reaction Status Date / Time levofloxacin [From Levaquin] Allergy Anaphylaxis Verified 02/18/23 21:51 Penicillins Allergy Anaphylaxis Verified 02/18/23 21:51 Social History Smoking Status: Current every day smoker tobacco type: cigarettes ROS ROS ED Constitutional Constitutional ED: Reports fever(s); Denies chills or weight loss Eyes Eyes: Denies change in vision or diplopia ENT ENT ED: Denies ear pain, rhinorrhea or sore throat Cardiovascular Cardiovascular: Reports chest pain; Denies orthopnea, palpitations or racing heartbeat Respiratory/Chest Respiratory/Chest: Reports cough; Denies dyspnea, orthopnea or sputum Gastrointestinal Gastrointestinal: Denies abdominal pain, diarrhea, nausea or vomiting Genitourinary Genitourinary ED: Denies dysuria, hematuria or urinary frequency Musculoskeletal Musculoskeletal: Reports back pain; Denies arthralgias or myalgias Integumentary Denies abscess or rash Neurologic Neurologic: Denies headache(s) or weakness Psychiatric Psychiatric: Denies anxiety, depression, suicidal ideation or suicidal thoughts Endocrine Endocrinology: Denies polydipsia, polyphagia or polyuria Allergic/Immunologic Allergic/Immunologic ED: Denies mouth swelling, tongue swelling or urticaria EXAM Physical Exam Narrative Exam Narrative: Patient appears to have pain with any movement. She splints the left lower chest with her arm. Const Vital Signs: 02/18/23 21:51 02/18/23 22:30 Temperature 97 F L Temperature Source Temporal Pulse Rate 104 H Respiratory Rate 16 Respiratory Pattern Normal Blood Pressure 130/88 H Blood Pressure Mean 102 Pulse Ox 98 Positive well nourished and well developed General Appearance ED: well developed HEENT Reports normocephalic, head/scalp atraumatic and moist mucous membranes Eyes PERRL and EOMs intact bilaterally Neck no lymphadenopathy, supple and no JVD Chest Wall Chest Narrative: Anterior lower left chest demonstrates a protrusion along the costochondral border. This area is tender to palpation. There is no crepitance or subcutaneous emphysema noted. I do not appreciate a rash. Tenderness is not confined to one particular rib but rather the lower ribs starting at around rib 6 inferiorly. Resp normal respiratory effort and clear to auscultation bilaterally Cardio regular rate, regular rhythm and no murmurs GI normal to inspection, nondistended, normoactive bowel sounds and non-tender Palpation: soft Back/Spine no CVA tenderness and normal ROM Extremity normal to inspection General Extremety ED: Negative for edema General Extremity: Negative for edema Neuro oriented x3 and CN's II-XII intact bilaterally Sensorium / Orientation: alert Motor Exam: strength 5/5 throughout Psych mental status grossly normal Mood & Affect: Negative for depressed or tearful Skin no rashes or lesions noted and no wounds MDM MDM MDM Narrative Medical decision making narrative: My independent interpretation the plain films of the left rib series with chest. No pleural effusion or infiltrate seen. Patient was given a dose of Toradol and lidocaine patch. This appears to be a costochondral separation. She was advised on home treatment including anti-inflammatories splinting techniques and monitoring for worsening symptoms. Would recommend follow-up 1 to 2 weeks. Radiography Diagnostic Testing: Clinical Impression(s) from Imaging Studies Ribs w/Chest X-Ray 02/18/23 22:20 IMPRESSION: RIBS: Normal x-ray examination of the ribs. CHEST: Normal x-ray examination of the chest. Electronically Signed: Travis Baker MD at 22:45 EDT , Discharge Plan Triage Chief Complaint: Chest Other ED Provider: Philip Stiles Dx/Rx/DC Orders Clinical Impression: Acute chest wall pain, Cough, Costochondral separation Instructions: ED Chest Wall Pain, Costochondritis Prescriptions: New lidocaine [Lidoderm] 5 % adhesive patch,medicated 1 patch topical DAILY PRN (Reason: chest wall pain) Qty: 15 0RF Rx Instructions: leave on most painful area for up to 12 hrs No Action meloxicam 15 MG tablet 15 mg PO Q6H PRN PRN (Reason: Pain 1-10 Or Fever) albuterol sulfate 90 mcg/actuation HFA aerosol inhaler INHALATION Patient Comments: Inhale 2 Puffs as instructed every 6 hours as needed for wheezing/shortness of breath. Primary Care Provider: Maria T Menezes Referrals: Maria T Menezes MD [Primary Care Provider] - 1-2 Weeks Disposition Disposition: Home, Self Care
--- NOTE | 2023-02-18 22:20 | RAD_ITS ---
STUDY: X-RAY - UNILATERAL RIBS ( LEFT ) WITH CHEST REASON FOR EXAM: Female, 52 years old. pain anterior deformity TECHNIQUE - RIBS: 4 view(s) of the ribs. TECHNIQUE - CHEST: Single PA view of the chest. COMPARISON: 02/13/2023 FINDINGS - RIBS: Normal visualized ribs without a demonstrated fracture. FINDINGS - CHEST: The lungs are clear and expanded. There is no demonstrated pleural abnormality. Normal size heart. Normal mediastinum and sol. Normal visualized pulmonary arteries. Normal visualized aortic arch and descending thoracic aorta. Normal visualized thoracic spine. Normal visualized ribs, clavicles, and shoulders. There is no demonstrated abnormality of the visualized soft tissue structures of the upper abdomen. RAD/Ribs Uni Min 3V w/PA Chest IMPRESSION: RIBS: Normal x-ray examination of the ribs. CHEST: Normal x-ray examination of the chest. Electronically Signed: Travis Baker MD at 22:45 EDT ,
[2023-02-18] MEDS: Ketorolac 60 MG/2 ML Vial IM (22:40)
[2023-02-18] MEDS: Lidocaine 5% Patch 1 PATCH TOPICAL (22:40)
== END 2023-02-18 23:06 | disposition home or self-care (01) ==
PROVIDERS: Emergency Provider Emergency Medicine; PCP Family Medicine; Visit Provider Emergency Medicine
DX: R07.89 Other chest pain (principal); R05.9 Cough, unspecified; F17.210 Nicotine dependence, cigarettes, uncomplicated
CPT/HCPCS: 71101; 96372; 99283

== ENCOUNTER 2023-03-18 14:13 | Emergency (ER) | payer MEDICAID, SELFPAY ==
[2023-03-18 14:14] VITALS: BP 130/91; PULSE 96; RESP 18; TEMP 36.6; O2SAT 100; BMI 24.0
--- NOTE | 2023-03-18 14:54 | EX.ED.DYSGE1 ---
HPI <HANS Artis - Last Filed: 03/18/23 18:59> History of Present Illness Chief Complaint: Constipation Narrative Narrative: 52-year-old female presents with constipation. She states she is homeless and has not had access to her MiraLAX which she typically takes every other day. She had a bowel movement about 3 days ago and a very small 1 today but feels backed up. After eating spaghetti around noon she became nauseous and vomited. She is had no abdominal pain. No melena or hematochezia. No chest pain or shortness of breath. Surgical history includes hysterectomy. PFSH <HANS Artis - Last Filed: 03/18/23 18:59> [facility] Medical History (Updated 03/18/23 @ 15:20 by HANS Artis) Arthritis Degenerative disc disease Home Medications meloxicam 15 mg tablet 15 mg PO Q6H PRN PRN Pain 1-10 Or Fever 08/17/20 [History Last Taken Unknown] lidocaine 5 % topical patch (Lidoderm) 1 patch topical DAILY PRN chest wall pain #15 ea 02/18/23 [Rx Last Taken Unknown] polyethylene glycol 3350 17 gram/dose oral powder (Miralax) 17 g PO DAILY #119 grams 03/18/23 [Rx Last Taken Unknown] Allergy/AdvReac Type Severity Reaction Status Date / Time levofloxacin [From Levaquin] Allergy Anaphylaxis Verified 03/18/23 14:14 Penicillins Allergy Anaphylaxis Verified 03/18/23 14:14 Social History Smoking Status: Current every day smoker tobacco type: cigarettes ROS <HANS Artis - Last Filed: 03/18/23 18:59> ROS ED ROS Narrative Constitutional: Negative for fever, chills, malaise. CVS: Negative for chest pain, syncope. Respiratory: Negative for shortness of breath. GI: Positive for nausea, vomiting, constipation. Negative for abdominal pain, diarrhea,melena, hematochezia. : Negative for dysuria, frequency. EXAM <HANS Artis - Last Filed: 03/18/23 18:59> Physical Exam Narrative Exam Narrative: CONST: Patient sitting in no acute distress. EYES: Normal inspection. ENT: Normal inspection, moist mucous membranes. NECK: Normal inspection. RESP: No respiratory distress, CTAB. CVS: Regular rate and rhythm, no murmur, no gallop. ABD: Soft and nontender, no guarding or rebound, nondistended, normal bowel sounds x 4. SKIN: Color normal, no rash, warm, dry, intact. EXTREMITIES: Normal appearance, no pedal edema. NEURO: Oriented x4. PSYCH: Normal affect. Const Vital Signs: 03/18/23 14:14 03/18/23 16:13 03/18/23 18:00 Temperature 97.9 F 97.6 F L 97.8 F Temperature Source Temporal Temporal Temporal Pulse Rate 96 70 76 Respiratory Rate 18 16 14 Blood Pressure 130/91 H 122/80 H 128/84 H Blood Pressure Mean 104 94 98 Pulse Ox 100 99 98 Oxygen Delivery Method Room Air Room Air Room Air <Dr. Derek Noe DO - Last Filed: 03/18/23 17:24> Physical Exam Const Vital Signs: 03/18/23 14:14 03/18/23 16:13 03/18/23 18:00 Temperature 97.9 F 97.6 F L 97.8 F Temperature Source Temporal Temporal Temporal Pulse Rate 96 70 76 Respiratory Rate 18 16 14 Blood Pressure 130/91 H 122/80 H 128/84 H Blood Pressure Mean 104 94 98 Pulse Ox 100 99 98 Oxygen Delivery Method Room Air Room Air Room Air [facility] <HANS Artis - Last Filed: 03/18/23 18:59> [facility] Narrative Medical decision making narrative: Patient is concerned she is constipated because she has been out of her MiraLAX and she vomited once today. She appears well and nontoxic. Vital signs stable. She has no evidence of dehydration and the soft, nontender, nondistended abdomen with normal bowel sounds. Differential includes constipation versus less likely obstruction based on her exam. KUB shows moderate stool consistent with constipation with nonobstructive bowel gas pattern. Since a lot of the stool seems to be in her lower colon I ordered a soapsuds enema. She only tolerated a little bit of the fluid and then states she could not have a bowel movement because she is too cold in the room. Ordered fleets enema but she refused. Since she is tolerating p.o. intake has a benign abdomen I do not think she needs further emergent workup. I prescribed MiraLAX since this has worked for her in the past and she was discharged in stable condition. Radiography Diagnostic Testing: Clinical Impression(s) from Imaging Studies KUB X-Ray 03/18/23 14:57 IMPRESSION: Moderate to marked amount of feces in the colon which may represent constipation. No acute finding. Electronically Signed: Nathaniel Joaquin MD at 15:14 EST , <Dr. Derek Noe, DO - Last Filed: 03/18/23 17:24> MDM Radiography Diagnostic Testing: Clinical Impression(s) from Imaging Studies KUB X-Ray 03/18/23 14:57 IMPRESSION: Moderate to marked amount of feces in the colon which may represent constipation. No acute finding. Electronically Signed: Nathaniel Joaquin MD at 15:14 EST , Treatment and Re-Evaluation :: I have personally performed a face to face assessment of the patient and have reviewed the JORGE Note. I performed a substantive portion of the visit including all aspects of the following. My seals findings include: History: Patient presents with abdominal pain and constipation that has been getting worse over the past couple days. Patient states she was able to have a small bowel movement today. Patient states that prior to that she had not had a bowel movement for the past couple days. Patient admits to some nausea but denies any vomiting. Patient denies any dysuria or hematuria. Patient admits to some subjective fevers and chills. Exam: Vital signs are stable. Patient is afebrile. Patient is in no acute distress. Oral mucosa is pink and moist. Neck is supple. Trachea is midline. There is no JVD. Heart was regular rate and rhythm. Lungs are clear and equal bilaterally. Abdomen is soft. Bowel sounds are normal. There is mild lower abdominal tenderness. There is no rebound or guarding noted. Cranial nerves II through XII are intact. There are no focal motor or sensory deficits noted. Medical Decision Making: Differential diagnosis includes bowel obstruction and constipation. Abdominal x-rays were obtained to assess for bowel obstruction and constipation. Abdominal x-rays were obtained. There are 2 views. On my independent interpretation, there is a large amount of stool throughout the colon. There is no evidence of bowel obstruction or perforation. Radiologist also interpreted the x-rays and agrees. Patient was given a soapsuds enema here. Patient was given a dose of Zofran. Patient was instructed to continue her laxatives as previously prescribed. Patient was instructed to follow-up with her primary care physician in 5 to 7 days. Patient understood and was agreeable with the plan. All questions were answered. Discharge Plan Triage Chief Complaint: Constipation ED Midlevel Provider: Viji Duncan ED Provider: Derek Noe Dx/Rx/DC Orders Clinical Impression: Constipation Instructions: ED Constipation (Adult) Prescriptions: New polyethylene glycol 3350 [Miralax] 17 gram/dose powder 17 g PO DAILY Qty: 119 0RF No Action meloxicam 15 MG tablet 15 mg PO Q6H PRN PRN (Reason: Pain 1-10 Or Fever) lidocaine [Lidoderm] 5 % adhesive patch,medicated 1 patch topical DAILY PRN (Reason: chest wall pain) Qty: 15 0RF Rx Instructions: leave on most painful area for up to 12 hrs Primary Care Provider: Maria T Menezes Referrals: Maria T Menezes MD [Primary Care Provider] - Activity Restrictions/Additional Instructions: Increase fiber, take 1 cap of MiraLAX daily Disposition Disposition: Home, Self Care
--- NOTE | 2023-03-18 14:57 | RAD_ITS ---
STUDY: X-RAY - ABDOMEN/PELVIS REASON FOR EXAM: Female, 52 years old. Evaluate for constipation. TECHNIQUE: Single AP view of the abdomen / pelvis on 2 images. COMPARISON: None. FINDINGS: Normal visualized lung bases. Normal bowel gas pattern with air seen to the rectum. Moderate to marked amount of feces in the colon. The visualized liver, spleen and kidneys are grossly normal in size and morphology. Normal soft tissue structures. Normal visualized osseous structures. RAD/Abdomen Single View (Portable) IMPRESSION: Moderate to marked amount of feces in the colon which may represent constipation. No acute finding. Electronically Signed: Nathaniel Joaquin MD at 15:14 EST ,
[2023-03-18] MEDS: Ondansetron ODT 4 MG Tablet PO (15:08)
[2023-03-18 16:13] VITALS: BP 122/80; PULSE 70; RESP 16; TEMP 36.4; O2SAT 99
[2023-03-18 18:00] VITALS: BP 128/84; PULSE 76; RESP 14; TEMP 36.6; O2SAT 98
[2023-03-18 19:05] VITALS: BP 136/80; PULSE 69; RESP 16; TEMP 36.7; O2SAT 99
== END 2023-03-18 19:07 | disposition home or self-care (01) ==
PROVIDERS: Emergency Provider Emergency Medicine; PCP Family Medicine; Visit Provider Emergency Medicine
DX: K59.00 Constipation, unspecified (principal); F17.210 Nicotine dependence, cigarettes, uncomplicated
CPT/HCPCS: 74018; 99284

== ENCOUNTER 2023-04-13 03:06 | Emergency (ER) | payer MEDICAID, SELFPAY ==
[2023-04-13 03:07] VITALS: BP 121/85; PULSE 71; RESP 16; TEMP 36.6; O2SAT 100; BMI 22.6
--- NOTE | 2023-04-13 03:33 | EDS_ITS ---
HPI History of Present Illness Chief Complaint: Rash Narrative Narrative: 52-year-old female presenting to the emergency department with foot itching and burning. States symptoms have been present for 3 days. She notes redness and itchy skin particularly in between the fourth and fifth toe. She states that now she feels that there is a couple blisters forming on the plantar surface. She picked up some Lotrimin and used it tonight. She was wondering if there is a shot of a steroid that can help with her discomfort. Patient states she typically wears 2 socks and boots and has the heater on high in her car. She states she found out this evening that moist environments not good for this. [facility] Medical History Arthritis Degenerative disc disease Home Medications NK 04/13/23 [History Last Taken Unknown] Allergy/AdvReac Type Severity Reaction Status Date / Time levofloxacin [From Levaquin] Allergy Anaphylaxis Verified 04/13/23 03:07 Penicillins Allergy Anaphylaxis Verified 04/13/23 03:07 Social History Smoking Status: Current every day smoker tobacco type: cigarettes ROS ROS ED Constitutional Constitutional ED: Denies chills or weight loss Eyes Eyes: Denies change in vision or diplopia ENT ENT ED: Denies ear pain, rhinorrhea or sore throat Cardiovascular Cardiovascular: Denies chest pain, orthopnea, palpitations or racing heartbeat Respiratory/Chest Respiratory/Chest: Denies cough, dyspnea or orthopnea Gastrointestinal Gastrointestinal: Denies abdominal pain, diarrhea, nausea or vomiting Genitourinary Genitourinary ED: Denies dysuria, hematuria or urinary frequency Musculoskeletal Musculoskeletal: Denies arthralgias or myalgias Integumentary Reports rash; Denies abscess Neurologic Neurologic: Denies headache(s) or weakness Psychiatric Psychiatric: Denies anxiety, depression, suicidal ideation or suicidal thoughts Endocrine Endocrinology: Denies polydipsia, polyphagia or polyuria Allergic/Immunologic Allergic/Immunologic ED: Denies mouth swelling, tongue swelling or urticaria EXAM Physical Exam Const Vital Signs: 04/13/23 03:07 Temperature 97.8 F Temperature Source Temporal Pulse Rate 71 Respiratory Rate 16 Blood Pressure 121/85 H Blood Pressure Mean 97 Pulse Ox 100 Positive well nourished and well developed General Appearance ED: well developed HEENT Reports normocephalic, head/scalp atraumatic and moist mucous membranes Eyes PERRL and EOMs intact bilaterally Neck no lymphadenopathy, supple and no JVD Resp normal respiratory effort and clear to auscultation bilaterally Cardio regular rate, regular rhythm and no murmurs GI normal to inspection, nondistended, normoactive bowel sounds and non-tender Palpation: soft Back/Spine no CVA tenderness and normal ROM Extremity Extremity Narrative: There is some evidence of peripheral vascular disease based on purpleish hue on the dorsal surface of her toes and fingers. In between the fourth and the fifth toe in the webspace is some skin erythema and skin breakdown with some slight exudate. There is erythema extending onto the plantar surface and over the lateral foot. She has some thickened skin on the plantar surface but I do not see any clear blisters. General Extremety ED: Negative for edema General Extremity: Negative for edema Neuro oriented x3 and CN's II-XII intact bilaterally Sensorium / Orientation: alert Motor Exam: strength 5/5 throughout Psych mental status grossly normal Mood & Affect: Negative for depressed or tearful Skin no rashes or lesions noted and no wounds MDM MDM MDM Narrative Medical decision making narrative: Looking at the patient's foot I think that this is most likely tinea pedis. I will write for ketoconazole 2%. Will refer her to podiatry. Advised her to quit smoking. For her to change her socks frequently to ensure dry environment. We talked about placing a piece of cotton between the toes to allow air movement. Discharge Plan Triage Chief Complaint: Rash ED Provider: Philip Stiles Dx/Rx/DC Orders Prescriptions: No Action NK Primary Care Provider: Maria T Menezes Referrals: Maria T Menezes MD [Primary Care Provider] -
== END 2023-04-13 04:03 | disposition home or self-care (01) ==
PROVIDERS: Emergency Provider Emergency Medicine; PCP Family Medicine; Visit Provider Emergency Medicine
DX: R21 Rash and other nonspecific skin eruption (principal); F17.210 Nicotine dependence, cigarettes, uncomplicated
CPT/HCPCS: 99282

== ENCOUNTER 2023-05-29 08:45 | Emergency (ER) | payer MEDICAID, SELFPAY ==
[2023-05-29 08:46] VITALS: BP 159/91; PULSE 95; RESP 14; TEMP 36.5; O2SAT 97; BMI 24.0
--- NOTE | 2023-05-29 09:30 | EX.ED.DYSGE1 ---
HPI History of Present Illness Chief Complaint: Fever Narrative Narrative: 52-year-old female presenting with fevers, chills, body aches. Patient states she lives at the [facility]. Patient states she has multiple sick contacts. Currently she believes she might have COVID. Denies chest pain or shortness of breath. She has nausea And vomiting. Patient states he took some Pepto-Bismol prior to coming but vomited this in the sink upon arrival. Patient states she took no Tylenol or ibuprofen and she arrives fever free. [facility] Medical History Arthritis Degenerative disc disease Home Medications ketoconazole 2 % topical cream 1 applic topical BID #60 grams 04/13/23 [Rx Last Taken Unknown] acetaminophen 500 mg tablet 1,000 mg (2 x 500 mg) PO Q6H PRN fever or pain #20 tabs 05/29/23 [Rx Last Taken Unknown] ibuprofen 600 mg tablet 600 mg PO Q8H PRN PRN fever or pain #20 TABLETS 05/29/23 [Rx Last Taken Unknown] ondansetron 4 mg disintegrating tablet 4 mg PO Q8H PRN PRN Nausea #20 tabs 05/29/23 [Rx Last Taken Unknown] Allergy/AdvReac Type Severity Reaction Status Date / Time levofloxacin [From Levaquin] Allergy Anaphylaxis Verified 05/29/23 08:47 Penicillins Allergy Anaphylaxis Verified 05/29/23 08:47 Social History Smoking Status: Current every day smoker tobacco type: cigarettes ROS ROS ED Constitutional Constitutional ED: Reports chills and fever(s); Denies sweats Eyes Eyes: Denies blurry vision or change in vision ENT ENT ED: Denies ear pain or sore throat Cardiovascular Cardiovascular: Denies chest pain, palpitations or racing heartbeat Respiratory/Chest Respiratory/Chest: Reports cough; Denies dyspnea or sputum Gastrointestinal Gastrointestinal: Reports nausea and vomiting; Denies abdominal pain, constipation or diarrhea Genitourinary Genitourinary ED: Denies dysuria, hematuria or urinary frequency Musculoskeletal Musculoskeletal: Reports myalgias; Denies arthralgias or neck pain Integumentary Denies abscess, Abrasions or rash Neurologic Neurologic: Denies headache(s), paresthesias or weakness Psychiatric Psychiatric: Denies anxiety, depression, suicidal ideation or suicidal thoughts Endocrine Endocrinology: Denies polydipsia or polyuria EXAM Physical Exam Const Vital Signs: 05/29/23 08:46 05/29/23 10:50 Temperature 97.7 F L Temperature Source Temporal Pulse Rate 95 88 Respiratory Rate 14 16 Blood Pressure 159/91 H Blood Pressure Mean 113 Pulse Ox 97 95 Oxygen Delivery Method Room Air Positive well nourished General Appearance ED: NAD; Negative for pallor HEENT Reports moist mucous membranes Eyes PERRL and EOMs intact bilaterally Neck no lymphadenopathy and supple Resp normal respiratory effort and clear to auscultation bilaterally Auscultation: Negative for rales, rhonchi or wheezes Cardio regular rate and regular rhythm GI normal to inspection, nondistended, normoactive bowel sounds Neuro oriented x3 and CN's II-XII intact bilaterally Sensorium / Orientation: alert Psych mental status grossly normal Skin no rashes or lesions noted General Skin Exam: Negative for jaundice or pallor MDM MDM MDM Narrative Medical decision making narrative: [facility] with concern for viral infection. She is concerned she may have COVID. She has body aches, subjective fever, chills, mild cough. Patient also states she has had some nausea and vomiting. Patient given Zofran and a shot of Toradol. Will obtain COVID, RSV, flu. Patient will be reevaluated. COVID positive today. RSV and flu negative. On reevaluation patient is improved mildly. I counseled her she would need more rest at home. I counseled to increase fluid intake. She is given a prescription for Zofran, Tylenol, ibuprofen. Return precautions discussed. Impression: 1. Nausea 2. COVID-19 Discharge Plan Triage Chief Complaint: Fever ED Provider: Antione Delgado Dx/Rx/DC Orders Instructions: Coronavirus Disease 2019 (COVID-19): Overview Prescriptions: New ondansetron 4 mg tablet,disintegrating 4 mg PO Q8H PRN PRN (Reason: Nausea) Qty: 20 0RF acetaminophen 500 mg tablet 1,000 mg PO Q6H PRN (Reason: fever or pain) Qty: 20 0RF ibuprofen 600 mg tablet 600 mg PO Q8H PRN PRN (Reason: fever or pain) Qty: 20 0RF No Action ketoconazole 2 % cream 1 applic topical BID Qty: 60 0RF Primary Care Provider: Maria T Menezes Referrals: Maria T Menezes MD [Primary Care Provider] - Disposition Disposition: Home, Self Care Discharge Date/Time: 05/29/23 11:04
[2023-05-29] MEDS: Ondansetron ODT 4 MG Tablet PO (09:35)
[2023-05-29] MEDS: Ketorolac 15 MG/ML Vial IM (09:36)
[2023-05-29 10:50] VITALS: PULSE 88; RESP 16; O2SAT 95
--- NOTE | 2023-05-29 10:52 | ED.RN ---
THIS RN ENTERS PT ROOM, INTRODUCES SELF AND ROLE. THIS RN EDUCATES PT ON DISCHARGE INSTRUCTIONS AND PRESCRIPTIONS. PT VERBALIZES UNDERSTANDING AND DENIES ANY FURTHER QUESTIONS. PT REPORTS THAT SHE WILL CALL A CAB TO RETURN TO THE [facility]. PT DRESSES SELF AND AMBULATES TO THE BATHROOM WITHOUT DIFFICULTY.
--- OUTSIDE RECORDS SUMMARY | 2023-05-29 11:32 | XMS RPT_ITS | CCD ---
Author Name Unknown Address [address] [place] [address] Organization [facility] Care Team Providers Care Unit Assembler Name Role Phone Omer Clifford MD Primary Care Provider OMER CLIFFORD Primary Care OMER Guy Primary Care OMER Guy Primary Care [place] Allergies Allergy Classification Reported Allergen(s) Allergy Type Date of Onset Reaction(s) Facility (5 sources) levoFLOXacin; Translations: [LEVOFLOXACIN] Drug Allergy 03-30-2022 Anaphylaxis [facility] (5 sources) Penicillins; Translations: [PENICILLINS] Drug Allergy 03-30-2022 Anaphylaxis [facility] Medications Current Medications Medication Drug Class(es) Dates Sig (Normalized) Sig (Original) benzonatate 100 mg oral capsule (2 sources) Non-narcotic Antitussive Start: 01-10-2023 End: 01-17-2023 take 1 capsule by mouth three times daily as needed benzonatate (TESSALON PERLES) 100 mg capsule Indications: URI, acute Take 1 capsule by mouth three times daily as needed for up to 7 days. 21 capsule 0 01/10/2023 01/17/2023 Active Completed/Discontinued Medications Medication Drug Class(es) Dates Sig (Normalized) Sig (Original) [id number] 200 actuat albuterol 0.09 mg/actuat metered dose inhaler (2 sources) beta2-Adrenergic Agonist Start: 01-10-2023 take 2 puff(s) by inhalation every six hours as needed for wheezing albuterol HFA (PROVENTIL HFA, VENTOLIN HFA) 90 mcg/actuation inhaler Indications: URI, acute Inhale 2 Puffs as instructed every 6 hours as needed for wheezing/shortnes s of breath. 1 Each 0 01/10/2023 Active Problems Problem Classification Problem Date Documented Da te Episodic/Chronic Other ear and sense organ disorders (1 source) Cellulitis of pinna ; Translations: [Cellulitis of left external ear] 11-23-2022 Episodic Other upper respiratory infections (1 source) Acute upper respiratory infection; Translations: [Acute upper respiratory infection, unspecified] 01-10-2023 Episodic Spondylosis; intervertebral disc disorders; other back problems (1 source) Neck pain; Translations: [Cervicalgia] Episodic Results Test Name Value Interpretation Reference Range Facil ity Vital Signs Date Time Vital Sign Value Performing Clinician Faci lity 01-10-2023 18:51-0400 Body temperature 99.1 [degF] Feli Calderon APRN.BODY SPECIALIST Work Phone: [facility] 01-10-2023 18:51-0400 Body weight 66.68 kg Feli Calderon APRN.BODY SPECIALIST Work Phone: [facility] 01-10-2023 18:51-0400 Diastolic blood pressure 66 mm[Hg] Feli Calderon APRN.BODY SPECIALIST Work Phone: [facility] 01-10-2023 18:51-0400 Heart rate 106 /min Feli Calderon APRN.BODY SPECIALIST Work Phone: [facility] 01-10-2023 18:51-0400 Respiratory rate 16 /min Feli Calderon APRN.BODY SPECIALIST Work Phone: [facility] 01-10-2023 18:51-0400 SaO2% (BldA) [Mass fraction] 97 % Feli Calderon APRN.BODY SPECIALIST Work Phone: [facility] 01-10-2023 18:51-0400 Systolic blood pressure 108 mm[Hg] Feli Calderon APRN.BODY SPECIALIST Work Phone: [facility] 11-23-2022 09:37-0400 Body temperature 98.01 [degF] Ron Colon MD Work Phone: [facility] 11-23-2022 09:37-0400 Body weight 65.77 kg Ron Colon MD Work Phone: [facility] 11-23-2022 09:37-0400 Diastolic blood pressure 64 mm[Hg] Ron Colon MD Work Phone: [facility] 11-23-2022 09:37-0400 Heart rate 98 /min Ron Colon MD Work Phone: [facility] 11-23-2022 09:37-0400 Respiratory rate 16 /min Ron Colon MD Work Phone: [facility] 11-23-2022 09:37-0400 SaO2% (BldA) [Mass fraction] 97 % Ron Colon MD Work Phone: [facility] 11-23-2022 09:37-0400 Systolic blood pressure 102 mm[Hg] Ron Colon MD Work Phone: [facility] 10-22-2022 14:52-0400 Body temperature 98.2 [degF] Vishnu Devonte SIDE SPLITTER.BODY SPECIALIST Work Phone: [facility] 10-22-2022 14:52-0400 Body weight 64.77 kg Vishnu Devonte SIDE SPLITTER.BODY SPECIALIST Work Phone: [facility] 10-22-2022 14:52-0400 Diastolic blood pressure 72 mm[Hg] Vishnu Devonte SIDE SPLITTER.BODY SPECIALIST Work Phone: [facility] 10-22-2022 14:52-0400 Heart rate 73 /min Vishnu Devonte SIDE SPLITTER.BODY SPECIALIST Work Phone: [facility] 10-22-2022 14:52-0400 Respiratory rate 18 /min Vishnu Devonte SIDE SPLITTER.BODY SPECIALIST Work Phone: [facility] 10-22-2022 14:52-0400 SaO2% (BldA) [Mass fraction] 97 % Vishnu Devonte SIDE SPLITTER.BODY SPECIALIST Work Phone: [facility] 10-22-2022 14:52-0400 Systolic blood pressure 112 mm[Hg] Vishnu Devonte SIDE SPLITTER.BODY SPECIALIST Work Phone: [facility] Encounters Encounter Date Encounter Type Care Provider Facility Start: 01-11-2023 Telephone encounter Feli Kvng BODY SPECIALIST Work Phone: [facility] Plan of Treatment Date Care Activity Detail Author Start: 01-10-2023 End: 01-24-2023 COVID & INFLUENZA A/B & RSV NAAT, ROUTINE [facility] Work Phone: Payers Date Payer Category Payer Medicaid [employer] [id number] 2022-Present [phone] [address] [place] [address] Medicaid [id number] 2022 Medicaid [id number] Social History Date Type Detail Facility Start: 10-22-2022 Tobacco smoking stat [facility] Smokes tobacco daily [facility] History of tobacco use Cigarette Smoker [facility] Start: 10-22-2022 Tobacco use and exposure Smoke less tobacco non-user [facility] Start: 1970 Sex Assigned At Not on file [facility] Start: 11-23-2022 End: 01-10-2023 History of Social function [facility] Start: 11-23-2022 End: 01-10-2023 Tobacco use panel [facility] Note 01-13-2023 Telephone Encounter - Dorota Stiles - 01/13/2023 11:10 AM EDTTelephone Encounter - Carolin Waters MA - 01/11/2023 12:47 PM EDTTelephone Encounter - Ashanti Fabian LPN - 01/11/2023 8:54 AM EDT Note Date & Type Note Facility 01-13-2023 Miscellaneous Notes Formattin g of this note might be different from the original. Patient given results and verbalized understanding of instructions given. Dorota Stiles Attempted to call pt, voicemail isn't setup. Will try again later. Carolin Waters MA Unable to reach patient at this time, no voicemail set up. Will need to try at another time. Negative for flu COVID and RSV please notify thank you documented in this encounter [facility] Progress note 01-10-2023 Note Date & Type Note Facility 01-10-2023 Note HNO ID: [id number] Author: Feli Calderon APRN.BODY SPECIALIST Service: ? Author Type: Nurse Practitioner Type: Progress Notes Filed: 01/10/2023 7:00 PM Note Text: CC: Patient presents with: Head Congestion: chest congestion, cough x 2 days HPI: Sobia Reid is a 52 year old female who presents to the office with complaint of chest congestion, head congestion, and cough, nonproductive for a few days. Symptoms are staying the same. Associated symptoms includes headache and body aches. Denies fever, nausea, vomiting , and diarrhea. Treatments tried include nothing so far. with no relief of symptoms. Sick contacts: unknown. History of asthma, frequent episodes of bronchitis, chronic bronchitis, bronchiectasis or COPD: No Smoker: No Seasonal/environmental allergies: No The ROS is otherwise negative. The patient's pmh, medications, allergies, and past visits are reviewed. PHYSICAL EXAM: BP 108/66 Pulse 106 Temp 37.3 ?C (99.1 ?F) Resp 16 Wt 66.7 kg (147 lb) SpO2 97% General appearance: alert, cooperative, pleasant, in no acute distress Head: Normocephalic Eyes: EOM's intact, conjunctiva pink and moist, no icterus, sclera white, non-injected Ears: Right ear: External ear/canal- Normal, TM - clear with good landmarks. Left ear: External ear/canal- Normal, TM - clear with good landmarks Oropharynx:moist without lesions, No erythema, exudates or tonsillar hypertrophy. Heart: Negative. RRR without obvious murmur, gallop, or rubs. No ectopy. Lungs: clear to auscultation, without rales or wheeze, good air exchange No past medical history on file. No past surgical history on file. ALLERGIES Levofloxacin and Penicillins MEDICATIONS meloxicam (MOBIC) 15 mg tablet Take by mouth. cyclobenzaprine (FLEXERIL) 10 mg tablet Take by mouth three times daily. benzonatate (TESSALON PERLES) 100 mg capsule Take 1 capsule by mouth three times daily as needed for up to 7 days. albuterol HFA (PROVENTIL HFA, VENTOLIN HFA) 90 mcg/actuation inhaler Inhale 2 Puffs as instructed every 6 hours as needed for wheezing/shortness of breath. Inhalational Spacing Device 1 Device one time only for 1 dose. No family history on file. Social History Tobacco Use Smoking status: Every Day Types: Cigarettes Smokeless tobacco: Never ASSESSMENT/PLAN: 1. URI, acute - ICD9: 465.9, ICD10: J06.9 - COVID AND INFLUENZA A/B AND RSV NAAT, ROUTINE - BENZONATATE 100 MG CAPSULE - ALBUTEROL SULFATE HFA 90 MCG/ACTUATION AEROSOL INHALER Prescription instructions reviewed with patient as applicable. Potential red flag symptoms discussed with the patient. Reviewed appropriate action plan to take if red flag symptoms occur. Patient agreeable to treatment plan. Feli Calderon APRN.[facility] History of Present illness Narrative 01-10-2023 Feli Calderon APRN.[facility] - 01/10/2023 6:57 PM EDT Note Date & Type Note Facility 01-10-2023 History of Presen t illness Narrative CC: Patient presents with: Head Congestion: chest congestion, cough x 2 days HPI: Sobia Reid is a 52 year old female who presents to the office with complaint of chest congestion, head congestion, and cough, nonproductive for a few days. Symptoms are staying the same. Associated symptoms includes headache and body aches. Denies fever, nausea, vomiting , and diarrhea. Treatments tried include nothing so far. with no relief of symptoms. Sick contacts: unknown. History of asthma, frequent episodes of bronchitis, chronic bronchitis, bronchiectasis or COPD: No Smoker: No Seasonal/environmental allergies: No The ROS is otherwise negative. The patient's pmh, medications, allergies, and past visits are reviewed. PHYSICAL EXAM: BP 108/66 Pulse 106 Temp 37.3 C (99.1 F) Resp 16 Wt 66.7 kg (147 lb) SpO2 97% General appearance: alert, cooperative, pleasant, in no acute distress Head: Normocephalic Eyes: EOM's intact, conjunctiva pink and moist, no icterus, sclera white, non-injected Ears: Right ear: External ear/canal- Normal, TM - clear with good landmarks. Left ear: External ear/canal- Normal, TM - clear with good landmarks Oropharynx:moist without lesions, No erythema, exudates or tonsillar hypertrophy. Heart: Negative. RRR without obvious murmur, gallop, or rubs. No ectopy. Lungs: clear to auscultation, without rales or wheeze, good air exchange No past medical history on file. No past surgical history on file. ALLERGIES Levofloxacin and Penicillins MEDICATIONS meloxicam (MOBIC) 15 mg tablet Take by mouth. cyclobenzaprine (FLEXERIL) 10 mg tablet Take by mouth three times daily. benzonatate (TESSALON PERLES) 100 mg capsule Take 1 capsule by mouth three times daily as needed for up to 7 days. albuterol HFA (PROVENTIL HFA, VENTOLIN HFA) 90 mcg/actuation inhaler Inhale 2 Puffs as instructed every 6 hours as needed for wheezing/shortness of breath. Inhalational Spacing Device 1 Device one time only for 1 dose. No family history on file. Social History Tobacco Use Smoking status: Every Day Types: Cigarettes Smokeless tobacco: Never ASSESSMENT/PLAN: 1. URI, acute - ICD9: 465.9, ICD10: J06.9 - COVID & INFLUENZA A/B & RSV NAAT, ROUTINE - BENZONATATE 100 MG CAPSULE - ALBUTEROL SULFATE HFA 90 MCG/ACTUATION AEROSOL INHALER Prescription instructions reviewed with patient as applicable. Potential red flag symptoms discussed with the patient. Reviewed appropriate action plan to take if red flag symptoms occur. Patient agreeable to treatment plan. Feli Calderon APRN.BODY SPECIALIST documented in this encounter [facility] Progress note 11-23-2022 Note Date & Type Note Facility 11-23-2022 Note HNO ID: [id number] Author: Ron Colon MD Service: ? Author Type: Physician Type: Progress Notes Filed: 11/23/2022 10:02 AM Note Text: Patient presents with: Derm Problem: left outside of ear red and warm to touch x 1 day HPI: Skin Lesion: Location: left lateral outer ear. Duration: woke with it today - assumes it is a spider bite since she had one on her neck once Pruritis/Pain: tender, warm Change: Drainage/blister/pustule/ulceration: scratched today, seeping Treatment: none MEDICATIONS: meloxicam (MOBIC) 15 mg tablet Take by mouth. ALLERGIES: ALLERGIES Allergen Reactions Levofloxacin Anaphylaxis Penicillins Anaphylaxis VITALS: BP 102/64 Pulse 98 Temp 36.7 ?C (98 ?F) Resp 16 Wt 65.8 kg (145 lb) SpO2 97% PE: Pleasant, in no acute distress. Ear: left. 2mm abrasion over a 4mm indurated and slightly raised area at the inferior pole of the helix on the anterior aspect. NECK: no lymphadenopathy. ASSESSMENT/PLAN: 1. Cellulitis of helix of left ear - ICD9: 380.10, ICD10: H60.12 Probable pustule which has been excoriated. Differential includes insect bite. Discussed oral vs topical treatment. She will start - MUPIROCIN 2 % TOPICAL OINTMENT. Follow up if worsening or not improving. Ron Colon MD [facility] History of Present illness Narrative 11-23-2022 Ron Colon MD - 11/23/2022 9:38 AM EDT Note Date & Type Note Facility 11-23-2022 History of Presen t illness Narrative Patient presents with: Derm Problem: left outside of ear red and warm to touch x 1 day HPI: Skin Lesion: Location: left lateral outer ear. Duration: woke with it today - assumes it is a spider bite since she had one on her neck once Pruritis/Pain: tender, warm Change: Drainage/blister/pustule/ulceration : scratched today, seeping Treatment: none MEDICATIONS: meloxicam (MOBIC) 15 mg tablet Take by mouth. ALLERGIES: ALLERGIES Allergen Reactions Levofloxacin Anaphylaxis Penicillins Anaphylaxis VITALS: BP 102/64 Pulse 98 Temp 36.7 C (98 F) Resp 16 Wt 65.8 kg (145 lb) SpO2 97% PE: Pleasant, in no acute distress. Ear: left. 2mm abrasion over a 4mm indurated and slightly raised area at the inferior pole of the helix on the anterior aspect. NECK: no lymphadenopathy. ASSESSMENT/PLAN: 1. Cellulitis of helix of left ear - ICD9: 380.10, ICD10: H60.12 Probable pustule which has been excoriated. Differential includes insect bite. Discussed oral vs topical treatment. She will start - MUPIROCIN 2 % TOPICAL OINTMENT. Follow up if worsening or not improving. Ron Colon MD documented in this encounter [facility] Progress note 10-22-2022 Note Date & Type Note Facility 10-22-2022 Note HNO ID: [id number] Author: Vishnu Whitney APRN.BODY SPECIALIST Service: ? Author Type: Nurse Practitioner Type: Progress Notes Filed: 10/22/2022 3:20 PM Note Text: Subjective HPI HPI Sobia Reid is a 52 year old female who presents today for CC of right neck/trap pain. This started this morning after waking up. Has tried aspirin and warm shower. Symptoms are worsened by rom of neck/shoulder. Denies rash. Denies numbness/tingling .Patient presents with: right shoulder and neck pain: X 1 day-cannot recall an injury History reviewed. No pertinent past medical history. No past surgical history on file. ALLERGIES Levofloxacin and Penicillins MEDICATIONS meloxicam (MOBIC) 15 mg tablet Take by mouth. predniSONE (DELTASONE) 10 mg tablet Take 4 tabs daily for 3 days, then 2 tabs daily for 3 days, then 1 tab daily for 3 days with food. No family history on file. Social History Tobacco Use Smoking status: Every Day Types: Cigarettes Smokeless tobacco: Never Review of Systems Constitutional: Negative for fever. Skin: Negative for rash. Neurological: Negative for tingling. Objective Blood pressure 112/72, pulse 73, temperature 36.8 ?C (98.2 ?F), temperature source Tympanic, resp. rate 18, weight 64.8 kg (142 lb 12.8 oz), SpO2 97 %. Physical Exam Constitutional: General: She is not in acute distress. Appearance: She is not toxic-appearing or diaphoretic. HENT: Head: Normocephalic and atraumatic. Pulmonary: Effort: Pulmonary effort is normal. No accessory muscle usage or respiratory distress. Musculoskeletal: Arms: Neurological: Mental Status: She is alert and oriented to person, place, and time. ASSESSMENT/PLAN: 1. Neck pain - ICD9: 723.1, ICD10: M54.2 Suspect muscle strain/sleeping wrong -use medication as prescribed -follow up if symptoms persist, worsen, change - PREDNISONE 10 MG TABLET Vishnu Whitney APRN.[facility] History of Present illness Narrative 10-22-2022 Vishnu Whitney APRN.[facility]JAY - 10/22/2022 3:11 PM EDT Note Date & Type Note Facility 10-22-2022 History of Presen t illness Narrative Images from the original note were not included. Subjective HPI HPI Sobia Reid is a 52 year old female who presents today for CC of right neck/trap pain. This started this morning after waking up. Has tried aspirin and warm shower. Symptoms are worsened by rom of neck/shoulder. Denies rash. Denies numbness/tingling .Patient presents with: right shoulder and neck pain: X 1 day-cannot recall an injury History reviewed. No pertinent past medical history. No past surgical history on file. ALLERGIES Levofloxacin and Penicillins MEDICATIONS meloxicam (MOBIC) 15 mg tablet Take by mouth. predniSONE (DELTASONE) 10 mg tablet Take 4 tabs daily for 3 days, then 2 tabs daily for 3 days, then 1 tab daily for 3 days with food. No family history on file. Social History Tobacco Use Smoking status: Every Day Types: Cigarettes Smokeless tobacco: Never Review of Systems Constitutional: Negative for fever. Skin: Negative for rash. Neurological: Negative for tingling. Objective Blood pressure 112/72, pulse 73, temperature 36.8 C (98.2 F), temperature source Tympanic, resp. rate 18, weight 64.8 kg (142 lb 12.8 oz), SpO2 97 %. Physical Exam Constitutional: General: She is not in acute distress. Appearance: She is not toxic-appearing or diaphoretic. HENT: Head: Normocephalic and atraumatic. Pulmonary: Effort: Pulmonary effort is normal. No accessory muscle usage or respiratory distress. Musculoskeletal: Arms: Neurological: Mental Status: She is alert and oriented to person, place, and time. ASSESSMENT/PLAN: 1. Neck pain - ICD9: 723.1, ICD10: M54.2 Suspect muscle strain/sleeping wrong -use medication as prescribed -follow up if symptoms persist, worsen, change - PREDNISONE 10 MG TABLET Vishnu Whitney APRN.[facility] documented in this encounter [facility] Evaluation note Note Date & Type Note Facility documented in this encounter [facility] Evaluation note Note Date & Type Note Facility documented in this encounter [facility] Evaluation note Note Date & Type Note Facility documented in this encounter [facility] Health Concerns Infection Onset Date Last Indicated Resolved Time COVID-19 Rule-Out 01/10/2023 01/10/2023 Infection Onset Date Last Indicated Resolved Time COVID-19 Rule-Out 01/10/2023 01/10/2023 01/11/2023 6:22 AM EDT Summary Purpose Family History No Family History Records Found Advance Directives No Advanced Directives Records Found Additional Source Comments Source Comments (unrecognize d section and content) In the event this informatio n is protected by the Federal Confidentiality of Alcohol and Drug Abuse Patient Records regulations: The Federal rules restrict any use of the information to criminally investigate or prosecute any alcohol or drug abuse patient.[facility] the event this information is protected by the Federal Confidentiality of Alcohol and Drug Abuse Patient Records regulations: The Federal rules restrict any use of the information to criminally investigate or prosecute any alcohol or drug abuse patient.[facility] the event this information is protected by the Federal Confidentiality of Alcohol and Drug Abuse Patient Records regulations: The Federal rules restrict any use of the information to criminally investigate or prosecute any alcohol or drug abuse patient.[facility] the event this information is protected by the Federal Confidentiality of Alcohol and Drug Abuse Patient Records regulations: The Federal rules restrict any use of the information to criminally investigate or prosecute any alcohol or drug abuse patient.[facility] Reason for Visit (unrecogniz ed section and content) Reason Comments Derm Problem left outside of ear red and warm to touch x 1 day Reason Comments Head Congestion chest congestion, co ugh x 2 days Reason Comments Results Care Teams (unrecognized sec tion and content) Unit Assembler Relationship Specialty Start Date End Date Omer Clifford MD [address] [place] [address] PCP - General Family Medicine 10/22/22 Unit Assembler Relationship Specialty Start Date End Date Omer Clifford MD [address] [place], [place] [id number] PCP - General Family Medicine 10/22/22 Unit Assembler Relationship Specialty Start Date End Date Omer Clifford MD [address] [place] [address] PCP - General Family Medicine 10/22/22 INFORMATION SOURCE (unrecogn ized section and content) FOR RECORDS PERTAINING TO PATIENTS WHO ARE OR HAVE BEEN ENROLLED IN A CHEMICAL DEPENDENCY/SUBSTANCEABUSE PROGRAM, SOME INFORMATION MAY BE OMITTED. This clinical summary was aggregated from multiple sources. Caution should be exercised in using it in the provision of clinical care. This summary normalizes information from multiple sources, and as a consequence, information in this document may materially change the coding, format and clinical context of patient data. In addition, data may be omitted in some cases. CLINICAL DECISIONS SHOULD BE BASED ON THE PRIMARY CLINICAL RECORDS. [employer] provides no warranty or guarantee of the accuracy or completeness of information in this document.
== END 2023-05-29 11:04 | disposition home or self-care (01) ==
PROVIDERS: Emergency Provider Student in an Organized Health Care Education/Training Program; PCP Family Medicine; Visit Provider Student in an Organized Health Care Education/Training Program
DX: U07.1 COVID-19 (principal); F17.210 Nicotine dependence, cigarettes, uncomplicated; Z20.828 Contact with and (suspected) exposure to other viral communicable diseases; Z59.01 Sheltered homelessness
CPT/HCPCS: 87631; 96372; 99282

== ENCOUNTER → 2023-06-13 | Outpatient (CLI) | payer MEDICAID, SELFPAY ==
--- NOTE | 2023-06-13 09:08 | ART_ITS ---
Reason For Study: PAD, leg pain Procedure A bilateral lower extremity continuous wave Doppler with analog waveform analysis,segmental pressures,and ankle brachial indexes without exercise. Left Segmental Pressures Left brachial= 100mmHg. Left posterior tibial artery = 135mmHg. Left dorsalis pedis artery = 120mmHg. Left digit = 87 mmHg. The left dorsalis pedis waveforms are triphasic. The left posterior tibial artery waveforms are triphasic. Right Segmental Pressures Right brachial= 104mmHg. Right posterior tibial artery = 128mmHg. Right dorsalis pedis artery = 115mmHg. Right digit = 79 mmHg. The right dorsalis pedis waveforms are triphasic. The right posterior tibial artery waveforms are triphasic. Indices The right ankle brachial index by the dorsalis pedis is 1.11. The right ankle brachial index by the posterior tibial artery is 1.23. The right digital-brachial index is 0.76. The left ankle brachial index by the dorsalis pedis is 1.15. The left ankle brachial index by the posterior tibial artery is 1.30. The left digital-brachial index is 0.84. VL/Lower Ext Art Exam w/o Exercis Interpretation Summary Triphasic Doppler waveforms are noted at ankle level bilaterally. Pulse-volume recordings appear satisfactory at all levels bilaterally. Resting ankle-brachial indices are norm al bilaterally. Digital-brachial indices are normal bilaterally. There is no evidence of significant arterial occlusive disease in the lower ext remities bilaterally. Ordering Physician: Vishnu Mejia Referring Physician: Omer Bo MD Performed By: Alanna Villa RVT
--- NOTE | 2023-06-13 09:08 | VDLE_ITS ---
Reason For Study: Bilateral leg pain RIGHT LEFT GSV is normal. GSV is normal. CFV is compressible, spontaneous, phasic, CFV is compressible, spontaneous, phasic, competent and demonstrates normal competent, and demonstrates normal augmentation. augmentation. FV is compressible, spontaneous, phasic, FV is compressible, spontaneous, phasic, competent and demonstrates normal competent and demonstrates normal augmentation. augmentation. POP V is compressible, spontaneous, phasic, POP V is compressible, spontaneous, phasic, competent and demonstrates normal competent and demonstrates normal augmentation. augmentation. T/P Trunk is compressible. T/P Trunk is compressible. PTV is compressible. PTV is compressible. RT PerV is compressible. LT PerV is compressible. Procedure This is a venous duplex using B-mode, color flow and spectral Doppler. Exam performed in department. A preliminary report was called and/or faxed to Dr. Mejia. VL/Venous Duplex US - Bud Extrem Interpretation Summary Deep veins of the lower extremities are bilaterally patent and compressible seg mentally. There is no evidence of deep vein thrombosis on either side. Valvular competence appears in tact within the proximal deep venous systems bilaterally. The great saphenous veins appear bila terally patent and compressible segmentally. Ordering Physician: Vishnu Mejia Referring Physician: Omer Bo MD Performed By: Alanna Villa RVT
--- OUTSIDE RECORDS SUMMARY | 2023-06-13 09:38 | XMS RPT_ITS | CCD ---
Author Name Unknown Address [address] [place] [address] Organization [facility] Care Team Providers Care Automotive Sales Representative Name Role Phone Omer Clifford MD Primary Care Provider OMER CLIFFORD Primary Care OMER Guy Primary Care OMER Guy Primary Care [place] Allergies Allergy Classification Reported Allergen(s) Allergy Type Date of Onset Reaction(s) Facility (5 sources) levoFLOXacin; Translations: [LEVOFLOXACIN] Drug Allergy 03-30-2022 Anaphylaxis [facility] (5 sources) Penicillins; Translations: [PENICILLINS] Drug Allergy 03-30-2022 Anaphylaxis [facility] Medications Current Medications Medication Drug Class(es) Dates [...] Drug Class(es) Dates Sig (Normalized) Sig (Original) [id number] 200 actuat albuterol 0.09 mg/actuat metered dose [...] 18:51-0400 Body temperature 99.1 [degF] Feli Calderon APRN.MANAGER GREEN Work Phone: [facility] 01-10-2023 18:51-0400 Body weight 66.68 kg Feli Calderon APRN.MANAGER GREEN Work Phone: [facility] 01-10-2023 18:51-0400 Diastolic blood pressure 66 mm[Hg] Feli Calderon APRN.MANAGER GREEN Work Phone: [facility] 01-10-2023 18:51-0400 Heart rate 106 /min Feli Calderon APRN.MANAGER GREEN Work Phone: [facility] 01-10-2023 18:51-0400 Respiratory rate 16 /min Feli Calderon APRN.MANAGER GREEN Work Phone: [facility] 01-10-2023 18:51-0400 SaO2% (BldA) [Mass fraction] 97 % Feli Calderon APRN.MANAGER GREEN Work Phone: [facility] 01-10-2023 18:51-0400 Systolic blood pressure 108 mm[Hg] Feli Calderon APRN.MANAGER GREEN Work Phone: [facility] 11-23-2022 09:37-0400 Body temperature 98.01 [degF] Ron Colon MD Work Phone: [facility] 11-23-2022 09:37-0400 Body weight 65.77 kg Ron Colon MD Work Phone: [facility] 11-23-2022 09:37-0400 Diastolic blood pressure 64 mm[Hg] Ron Colon MD Work Phone: [facility] 11-23-2022 09:37-0400 Heart rate 98 /min Ron Colon MD Work Phone: [facility] 11-23-2022 09:37-0400 Respiratory rate 16 /min Ron Colon MD Work Phone: [facility] 11-23-2022 09:37-0400 SaO2% (BldA) [Mass fraction] 97 % Ron Colon MD Work Phone: [facility] 11-23-2022 09:37-0400 Systolic blood pressure 102 mm[Hg] Ron Colon MD Work Phone: [facility] 10-22-2022 14:52-0400 Body temperature 98.2 [degF] Vishnu Devonte POLE SETTER.MANAGER GREEN Work Phone: [facility] 10-22-2022 14:52-0400 Body weight 64.77 kg Vishnu Devonte POLE SETTER.MANAGER GREEN Work Phone: [facility] 10-22-2022 14:52-0400 Diastolic blood pressure 72 mm[Hg] Vishnu Devonte POLE SETTER.MANAGER GREEN Work Phone: [facility] 10-22-2022 14:52-0400 Heart rate 73 /min Vishnu Devonte POLE SETTER.MANAGER GREEN Work Phone: [facility] 10-22-2022 14:52-0400 Respiratory rate 18 /min Vishnu Devonte POLE SETTER.MANAGER GREEN Work Phone: [facility] 10-22-2022 14:52-0400 SaO2% (BldA) [Mass fraction] 97 % Vishnu Devonte POLE SETTER.MANAGER GREEN Work Phone: [facility] 10-22-2022 14:52-0400 Systolic blood pressure 112 mm[Hg] Vishnu Devonte POLE SETTER.MANAGER GREEN Work Phone: [facility] Encounters Encounter Date Encounter Type Care Provider Facility Start: 01-11-2023 Telephone encounter Feli Kvng MANAGER GREEN Work Phone: [facility] Plan of Treatment Date Care Activity Detail Author Start: 01-10-2023 End: 01-24-2023 COVID & INFLUENZA A/B & RSV NAAT, ROUTINE [facility] Work Phone: Payers Date Payer Category Payer Medicaid [employer] [id number] 2022-Present [phone] [address] [place] [address] Medicaid [id number] 2022 Medicaid [id number] Social History Date Type Detail Facility Start: 10-22-2022 Tobacco smoking stat [facility] Smokes tobacco daily [facility] History of tobacco use Cigarette Smoker [facility] Start: 10-22-2022 Tobacco use and exposure Smoke less tobacco non-user [facility] Start: 1970 Sex Assigned At Not on file [facility] Start: 11-23-2022 End: 01-10-2023 History of Social function [facility] Start: 11-23-2022 End: 01-10-2023 Tobacco use panel [facility] Note 01-13-2023 Telephone Encounter - Dorota Stiles [...] notify thank you documented in this encounter [facility] Progress note 01-10-2023 Note Date & Type Note Facility 01-10-2023 Note HNO ID: [id number] Author: Feli Calderon APRN.MANAGER GREEN Service: ? Author Type: Nurse Practitioner Type: [...] Patient agreeable to treatment plan. Feli Calderon APRN.[facility] History of Present illness Narrative 01-10-2023 Feli Calderon APRN.[facility] - 01/10/2023 6:57 PM EDT Note Date [...] Patient agreeable to treatment plan. Feli Calderon APRN.MANAGER GREEN documented in this encounter [facility] Progress note 11-23-2022 Note Date & Type Note Facility 11-23-2022 Note HNO ID: [id number] Author: Ron Colon MD Service: ? Author [...] Follow up if worsening or not improving. oRn Colon MD [facility] History of Present illness Narrative 11-23-2022 [...] Ron Colon MD documented in this encounter [facility] Progress note 10-22-2022 Note Date & Type Note Facility 10-22-2022 Note HNO ID: [id number] Author: Vishnu Whitney APRN.MANAGER GREEN Service: ? Author Type: Nurse Practitioner Type: [...] PREDNISONE 10 MG TABLET Vishnu Whitney APRN.DEEJAY [facility] History of Present illness Narrative 10-22-2022 [...] Vishnu Whitney APRN.DEEJAY documented in this encounter [facility] Evaluation note Note Date & Type Note Facility documented in this encounter [facility] Evaluation note Note Date & Type Note Facility documented in this encounter [facility] Evaluation note Note Date & Type Note Facility documented in this encounter [facility] Health Concerns Infection Onset Date Last Indicated [...] or prosecute any alcohol or drug abuse patient.[facility] the event this information is protected by the Federal Confidentiality of Alcohol and Drug Abuse Patient Records regulations: The Federal rules restrict any use of the information to criminally investigate or prosecute any alcohol or drug abuse patient.[facility] the event this information is protected by the Federal Confidentiality of Alcohol and Drug Abuse Patient Records regulations: The Federal rules restrict any use of the information to criminally investigate or prosecute any alcohol or drug abuse patient.[facility] the event this information is protected by the Federal Confidentiality of Alcohol and Drug Abuse Patient Records regulations: The Federal rules restrict any use of the information to criminally investigate or prosecute any alcohol or drug abuse patient.[facility] Reason for Visit (unrecogniz ed section and content) Reason Comments Derm Problem left outside of ear red and warm to touch x 1 day Reason Comments Head Congestion chest congestion, co ugh x 2 days Reason Comments Results Care Teams (unrecognized sec tion and content) Automotive Sales Representative Relationship Specialty Start Date End Date Omer Clifford MD [address] [place] [address] PCP - General Family Medicine 10/22/22 Automotive Sales Representative Relationship Specialty Start Date End Date Omer Clifford MD [address] [place], [place] [id number] PCP - General Family Medicine 10/22/22 Automotive Sales Representative Relationship Specialty Start Date End Date Omer Clifford MD [address] [place] [address] PCP - General Family Medicine 10/22/22 INFORMATION [...] BE BASED ON THE PRIMARY CLINICAL RECORDS. [employer] provides no warranty or guarantee of the accuracy or completeness of information in this document.
== END | disposition home or self-care (01) ==
PROVIDERS: PCP Family Medicine; Referring Provider Podiatrist Foot & Ankle Surgery; Visit Provider Podiatrist Foot & Ankle Surgery
DX: I73.89 Other specified peripheral vascular diseases (principal); M79.604 Pain in right leg; M79.605 Pain in left leg
CPT/HCPCS: 93923; 93970

== ENCOUNTER 2023-07-30 20:02 | Emergency (ER) | payer MEDICAID, SELFPAY ==
[2023-07-30 20:03] VITALS: BP 126/90; PULSE 92; RESP 16; TEMP 36.3; O2SAT 99; BMI 24.4
--- NOTE | 2023-07-30 21:50 | ED.VIS.GI ---
HPI HPI - GI History of Present Illness Chief Complaint: Constipation Informant: patient Abdominal Pain/Flank Pain Onset: Days Context: Gradual Onset Timing: Continuous Current Severity: Mild Maximum Severity: Mild Nausea/Vomiting/Emesis GI Symptom: Negative for Nausea or Vomiting Diarrhea/Melena/Hematochezia GI Symptom: Negative for Diarrhea, Melena or Hematochezia Associated Symptoms Associated Symptoms: Negative for Dysuria, Frequency or Hematuria Narrative Narrative: 52-year-old female currently homeless living in her car. Planing of several day history of constipation. Noticing abdominal pain. No fever. Prior hysterectomy no other abdominal surgeries. Prior history of constipation in the past. Prior similar symptoms: Yes Recent Illness/Hospitalization: No PFSH PFSH Medical History Arthritis Degenerative disc disease Home Medications ketoconazole 2 % topical cream 1 applic topical BID #60 grams 04/13/23 [Rx Last Taken Unknown] acetaminophen 500 mg tablet 1,000 mg (2 x 500 mg) PO Q6H PRN fever or pain #20 tabs 05/29/23 [Rx Last Taken Unknown] ibuprofen 600 mg tablet 600 mg PO Q8H PRN PRN fever or pain #20 TABLETS 05/29/23 [Rx Last Taken Unknown] ondansetron 4 mg disintegrating tablet 4 mg PO Q8H PRN PRN Nausea #20 tabs 05/29/23 [Rx Last Taken Unknown] Allergy/AdvReac Type Severity Reaction Status Date / Time levofloxacin [From Levaquin] Allergy Anaphylaxis Verified 07/30/23 20:04 Penicillins Allergy Anaphylaxis Verified 07/30/23 20:04 Social History Smoking Status: Current every day smoker tobacco type: cigarettes ROS ROS ED ROS Narrative Constipation. Review of Systems ROS Unobtainable: Denies due to encephalopathy Constitutional Constitutional ED: Denies chills or fever(s) ENT ENT ED: Denies ear pain Cardiovascular Cardiovascular: Denies chest pain Respiratory/Chest Respiratory/Chest: Denies cough or dyspnea Gastrointestinal Gastrointestinal: Denies abdominal pain Genitourinary Genitourinary ED: Denies dysuria or hematuria Musculoskeletal Musculoskeletal: Denies arthralgias Integumentary Denies abscess Neurologic Neurologic: Denies headache(s) Psychiatric Psychiatric: Denies anxiety Endocrine Endocrinology: Denies polydipsia Hematologic/Lymphatic Hematologic/Lymphatic: Denies easy bleeding Allergic/Immunologic Allergic/Immunologic ED: Denies mouth swelling, tongue swelling or urticaria EXAM Physical Exam Narrative Exam Narrative: Well-appearing 52-year-old female. Vital signs stable afebrile. Pulse ox 9 9% on room air no hypoxia. No distress. HEENT exam unremarkable. Neck nontender. No lymphadenopathy. Lungs clear to auscultation bilaterally. Heart regular rhythm rate about 90 no murmur. Chest wall and ribs nontender. Abdomen soft, nondistended, normal bowel sounds without peritoneal signs. No signs of obstruction. No hernia or mass appreciated. Moving all 4 extremities. Trace minimal edema both ankles. Calves are nontender. Neurologically she is awake and alert with no focal motor deficits. Answering questions and following commands. Const Vital Signs: 07/30/23 20:03 Temperature 97.4 F L Temperature Source Temporal Pulse Rate 92 Respiratory Rate 16 Blood Pressure 126/90 H Blood Pressure Mean 102 Pulse Ox 99 Oxygen Delivery Method Room Air Positive well nourished and well developed; Negative for cachectic, contractures or unkempt General Appearance ED: well developed and NAD; Negative for unkempt, cachectic, contractures or pallor Nutritional Appearance: Negative for cachectic HEENT Reports moist mucous membranes normocephalic and atraumatic; Negative for trauma or tenderness Eyes PERRL and EOMs intact bilaterally General Eye ED: Negative for pale conjunctiva, scleral icterus or other Neck no lymphadenopathy, supple and no JVD General: Negative for tenderness Carotids: Negative for other Lymph Lymphatic: Negative for other Resp normal respiratory effort and clear to auscultation bilaterally Effort and Inspection: Negative for respiratory distress Auscultation: Negative for rales, rhonchi or wheezes Cardio regular rate, regular rhythm, S1 normal heart sound, S2 normal heart sound and no murmurs Rate: Negative for bradycardia or tachycardic Rhythm: Negative for abnormal rhythm GI non-tender, non-distended and no masses Inspection: Negative for abdominal distention Auscultation: normoactive bowel sounds Palpation: soft; Negative for tender or rebound tenderness present Back/Spine no CVA tenderness General Back: Negative for CVA tenderness Cervical Spine: Negative for cervical spine tenderness Thoracic Spine / Upper Back: Negative for thoracic spinal tenderness Lumbar Spine / Lower Back: Negative for lumbar spinal tenderness Coccyx: Negative for other Extremity full ROM General Extremety ED: Negative for edema or tenderness General Extremity: Negative for edema Neuro CN's II-XII intact bilaterally and moves all extremities Sensorium / Orientation: alert, oriented to person, oriented to place and oriented to time; Negative for orientation impaired Motor Exam: strength 5/5 throughout; Negative for general weakness or strength abnormal Psych mental status grossly normal and thought process normal Appearance: Negative for unkempt Attitude: No agitated Mood & Affect: Negative for depressed, anxious or tearful Skin no wounds General Skin Exam: Negative for jaundice or pallor Rashes: no rashes Trauma: Negative for abrasion Nails: Negative for discolored MDM MDM MDM Narrative Medical decision making narrative: 52-year-old homeless female complaining constipation. I do not think she needs any labs. She has had labs several months ago which are basically unremarkable. Plain x-ray being obtained. Repeat exam unchanged at 10:19 PM. Patient be treated for constipation. I went over x-ray results with her. She will be discharged home with [facility]. History & Record Review Discussion w/independent historian: Patient Additional record(s) reviewed:: Prior inpatient record, Prior outpatient record and Prior labs Radiography Diagnostic Testing: KUB 2 views interpreted by myself shows increased stool in the rectum right and left colon. No obstruction. Otherwise no acute process. Discharge Plan Triage Chief Complaint: Constipation Other Complaint: Cellulitis Edema ED Provider: Bijan Rendon Dx/Rx/DC Orders Clinical Impression: Homeless, Constipation Instructions: ED Constipation (Adult) Prescriptions: No Action ketoconazole 2 % cream 1 applic topical BID Qty: 60 0RF ondansetron 4 mg tablet,disintegrating 4 mg PO Q8H PRN PRN (Reason: Nausea) Qty: 20 0RF acetaminophen 500 mg tablet 1,000 mg PO Q6H PRN (Reason: fever or pain) Qty: 20 0RF ibuprofen 600 mg tablet 600 mg PO Q8H PRN PRN (Reason: fever or pain) Qty: 20 0RF Primary Care Provider: Kilo Bo Referrals: Kilo Bo MD [Primary Care Provider] - 3-5 Days if not improving Activity Restrictions/Additional Instructions: He will be discharged with [facility]. Drink 1 to 6 to 8 ounce glass every hour until you have a bowel movement. I would start it in the morning if not you will be up on the toilet all night. Plenty of fluids, fruits, vegetables and fiber. Follow-up with your doctor if not improving. Disposition Disposition: Home, Self Care
--- NOTE | 2023-07-30 21:55 | RAD_ITS ---
STUDY: X-RAY - ABDOMEN/PELVIS REASON FOR EXAM: Female, 52 years old. Constipation TECHNIQUE: Two AP supine views of the abdomen and pelvis. COMPARISON: March 18, 2023 FINDINGS: Normal visualized lung bases. There is an unremarkable bowel gas pattern. No dilated loops of bowel. There is moderate stool. There is no demonstrated free abdominal air. Normal soft tissue structures. Normal visualized osseous structures. RAD/Abdomen Single View IMPRESSION: Moderate stool. No obstruction. Electronically Signed: Dilan Henderson MD at 23:22 EDT ,
[2023-07-30 22:02] VITALS: BP 124/68; PULSE 72; RESP 16; O2SAT 95
[2023-07-30] MEDS: Electrolyte Solution/Peg's 4000 ML 2000 ML PO (22:37)
[2023-07-30 22:43] VITALS: BP 122/65; PULSE 78; RESP 18; TEMP 36.3; O2SAT 98
== END 2023-07-30 22:44 | disposition home or self-care (01) ==
PROVIDERS: Emergency Provider Emergency Medicine; PCP Family Medicine; Visit Provider Emergency Medicine
DX: K59.00 Constipation, unspecified (principal); Z59.02 Unsheltered homelessness; F17.210 Nicotine dependence, cigarettes, uncomplicated
CPT/HCPCS: 74018; 99283

== ENCOUNTER → 2023-09-09 | Outpatient (CLI) | payer MEDICAID, SELFPAY ==
[2023-09-09 15:26] LABS: Absolute Lymphocyte Count 2.41 X10^3/uL (0.83-4.51); Absolute Neutrophil Count 2.8 X10^3/uL (2.0-7.7); Basophil# 0.04 X10^3/uL; Basophil% 0.7 % (0-1); Eosinophils% 1.7 % (0-5); Hematocrit 42.2 % (37-47); Hemoglobin 13.6 g/dL (12.0-15.0); Lymphocyte # 2.41 X10^3/ul (0.83-4.51); Lymphocyte % 42.1 % (19-41); Mean Corp Hgb Conc 32.2 g/dL (32-36); Mean Corpuscular Hgb 29.8 pg (27.0-32.0); Mean Corpuscular Volume 92.5 fL (81-99); Mean Platelet Vol. 10.7 fl (6.2-12.0); Monocyte# 0.35 X10^3/uL; Monocyte% 6.1 % (0-10); NRBC Flagged by Analyzer 0 % (0-5); Neutrophil % 49.1 % (47-70); Platelet Count 251 K/mm3 (150-450); RBC Distribution Width CV 13.5 % (11.6-14.6); RBC Distribution Width SD 46.3 fl (35.1-43.9); Red Blood Count 4.56 M/mm3 (4.2-5.4); White Blood Count 5.7 K/mm3 (4.4-11.0)
[2023-09-09 15:35] LABS: Vitamin B12 273 pg/mL (211-911); Vitamin D,25 Hydroxy 75.1 ng/mL
[2023-09-09 16:09] LABS: ALB/GLOB Ratio 1.2 RATIO (0.9-2.4); AST(SGOT) 19 U/L (15-37); Alanine Aminotransfer ALT/SGPT 17 U/L (13-56); Albumin, Serum 3.8 g/dL (3.2-5.0); Alkaline Phosphatase 73 U/L (45-117); Anion Gap 4 (5-15); BUN 21 mg/dL (7-18); BUN/Creat Ratio 16.3 RATIO (10-20); Calcium,Total 9.4 mg/dL (8.5-10.1); Chloride 107 mmol/L (98-107); Creatinine, Serum 1.29 mg/dL (0.55-1.02); EST Glomerular Filtration Rate 46 mL/min (>60); Est Glom Filt Rate - Afr Amer 56 mL/min (>60); Ferritin 71 ng/mL (8-252); Globulin 3.2 g/dL (2.2-4.2); Glucose 90 mg/dL (74-106); Iron 87 ug/dL (50-170); Potassium 4.1 mmol/L (3.5-5.1); Sodium Level 138 mmol/L (136-145); Thyroid Stim Hormone (TSH) 1.31 uIU/mL (0.358-3.74)
[2023-09-09 16:16] LABS: Erythrocyte Sedimentation Rate 2 mm/hr (0-30)
[2023-09-11 10:09] LABS: ANTINUCLEAR ANTIBODIES DIRECT Negative (Negative)
[2023-09-11 15:08] LABS: PROEL- A/G Ratio 1.5 (0.7-1.7); PROEL- Alpha-1 Globulin 0.2 g/dL (0.0-0.4); PROEL- Alpha-2 Globulin 0.7 g/dL (0.4-1.0); PROEL- Beta Globulin 0.8 g/dL (0.7-1.3); PROEL- Globulin, Total 2.7 g/dL (2.2-3.9); PROEL- TOTAL PROTEIN 6.7 g/dL (6.0-8.5); PROEL-M-Spike Not Observed g/dL (Not Observed)
== END | disposition home or self-care (01) ==
LOC: MFPLAB 12:04
PROVIDERS: PCP Family Medicine; Visit Provider Family Medicine
DX: G62.9 Polyneuropathy, unspecified (principal)
CPT/HCPCS: 36415; 80053; 82306; 82607; 82728; 83540; 84165; 84443; 85025; 85652; 86038

== ENCOUNTER 2023-10-18 15:27 | Emergency (ER) | payer MEDICAID, SELFPAY ==
[2023-10-18 15:28] VITALS: BP 132/97; PULSE 108; PULSE 112; RESP 16; TEMP 36.8; O2SAT 100; O2SAT 96; BMI 23.3
--- NOTE | 2023-10-18 15:36 | EDS_ITS ---
HPI <HANS Artis - Last Filed: 10/18/23 15:49> History of Present Illness Chief Complaint: Laceration Narrative Narrative: 53-year-old female was putting away her car joshua when the handle came back and struck her forehead causing a laceration. No LOC. She states she didn't look at the wound but came in to see if it needs stitches. She has no headache, visual changes,or nausea or vomiting. No blood thinners. Tetanus is up-to-date. PFSH <HANS Artis - Last Filed: 10/18/23 15:49> [facility] Medical History Arthritis Degenerative disc disease Home Medications ?Medication ?Instructions ?Recorded ?Last Taken ?Type NK 10/18/23 Unknown History Allergy/AdvReac Type Severity Reaction Status Date / Time levofloxacin (From Levaquin) Allergy Anaphylaxis Verified 10/18/23 15:30 Penicillins Allergy Anaphylaxis Verified 10/18/23 15:30 Social History Smoking Status: Current every day smoker tobacco type: cigarettes ROS <HANS Artis - Last Filed: 10/18/23 15:49> ROS ED ROS Narrative Eyes: Negative for visual change. GI: Negative for nausea, vomiting. Neuro: Negative for headache. EXAM <HANS Artis - Last Filed: 10/18/23 15:49> Physical Exam Narrative Exam Narrative: CONST: Patient sitting in no acute distress. EYES: Normal inspection. PERRL, EOMI. HEAD: 1 cm superficial laceration right mid frontal forehead. No bruising or hematoma, no facial bony tenderness, no raccoon eyes or Stephens sign, no nasal septal hematoma or hemotympanum, no CSF otorrhea or rhinorrhea. NECK: Normal inspection. RESP: No respiratory distress, CTAB. CVS: Regular rate and rhythm, no murmur, no gallop. EXTREMITIES: Normal appearance, no pedal edema. NEURO: Alert and answering questions appropriately. PSYCH: Normal affect. Const Vital Signs: 10/18/23 15:28 10/18/23 15:28 10/18/23 15:58 Temperature 98.2 F 98.3 F Temperature Source Temporal Pulse Rate 112 H 108 H 99 Respiratory Rate 16 16 16 Blood Pressure 132/97 H 132/97 H 132/86 H Blood Pressure Mean 108 108 101 Pulse Ox 100 96 97 Oxygen Delivery Method Room Air Room Air <Dr. Bijan Rendon MD - Last Filed: 10/18/23 16:02> Physical Exam Const Vital Signs: 10/18/23 15:28 10/18/23 15:28 10/18/23 15:58 Temperature 98.2 F 98.3 F Temperature Source Temporal Pulse Rate 112 H 108 H 99 Respiratory Rate 16 16 16 Blood Pressure 132/97 H 132/97 H 132/86 H Blood Pressure Mean 108 108 101 Pulse Ox 100 96 97 Oxygen Delivery Method Room Air Room Air [facility] <HANS Artis - Last Filed: 10/18/23 15:49> [facility] Narrative Medical decision making narrative: There is a 1 cm superficial laceration on her forehead from the car joshua handle. She is awake and alert. Stable vital signs. GCS 15. The wound does not require suture repair and there is no indication for a CT brain scan. It was cleansed and closed with skin glue. Her tetanus is up-to-date within the last 3 years. She was discharged in stable condition. <Dr. Bijan Rendon MD - Last Filed: 10/18/23 16:02> [facility] Narrative Medical decision making narrative: There is a 1 cm superficial laceration on her forehead from the car joshua handle. She is awake and alert. Stable vital signs. GCS 15. The wound does not require suture repair and there is no indication for a CT brain scan. It was cleansed and closed with skin glue. Her tetanus is up-to-date within the last 3 years. She was discharged in stable condition. I have personally performed a face to face assessment of the patient and have reviewed the JORGE Note. I performed a substantive portion of the visit including all aspects of the following. My seals findings include: History is 53-year-old female hit in the head by a handle. Laceration mid forehead. No LOC. Not on any blood thinners. No other complaints. Exam is [well-appearing middle-age female. Vital signs stable afebrile. H EENT exam pupils round reactive light. Scalp nontender. Horizontal 1 to 2 cm laceration mid forehead. Neck nontender. Trachea midline. Lungs clear. Heart regular rhythm. Chest wall nontender. Abdomen soft nontender. Back nontender. Moving all 4 extremities. 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 Dorsi plantarflexion intact. Neurologically she is awake and alert no focal motor deficits. GCS of 15. NIH is 0.] Medical Decision Making [Dermabond repair forehead laceration. No imaging needed.] Other additions or changes: [None] History & Record Review Discussion w/independent historian: Patient Discharge Plan Triage Chief Complaint: Laceration ED Midlevel Provider: Viji Duncan ED Provider: Bijan Rendon Dx/Rx/DC Orders Clinical Impression: Facial laceration Instructions: ED Laceration, Face: Skin Glue Prescriptions: No Action NK Primary Care Provider: Omer Bo Referrals: Omer Bo MD [Primary Care Provider] - Activity Restrictions/Additional Instructions: The skin glue peels off on its own within 5 to 10 days. Do not put ointment or cream on the area. Print Language: Botswanan Disposition Disposition: Home, Self Care Discharge Date/Time: 10/18/23 15:59
[2023-10-18 15:58] VITALS: BP 132/86; PULSE 99; RESP 16; TEMP 36.8; O2SAT 97
== END 2023-10-18 15:59 | disposition home or self-care (01) ==
LOC: ED 15:43
PROVIDERS: Emergency Provider Emergency Medicine; PCP Family Medicine; Visit Provider Emergency Medicine
DX: S01.81XA Laceration without foreign body of other part of head, initial encounter (principal); F17.210 Nicotine dependence, cigarettes, uncomplicated; W22.8XXA Striking against or struck by other objects, initial encounter; Y93.89 Activity, other specified; Y92.9 Unspecified place or not applicable
CPT/HCPCS: 12011; 99282

== ENCOUNTER 2023-12-03 11:27 | Emergency (ER) | payer MEDICAID, SELFPAY ==
[2023-12-03 11:28] VITALS: BP 112/82; PULSE 96; RESP 16; TEMP 36; O2SAT 100; BMI 24.5
[2023-12-03 11:31] VITALS: BP 94/63; PULSE 88; RESP 16; O2SAT 98
--- NOTE | 2023-12-03 11:49 | EKG12_ITS ---
Test Reason : Blood Pressure : / mmHG Vent. Rate : 084 BPM Atrial Rate : 084 BPM P-R Int : 150 ms QRS Dur : 066 ms QT Int : 372 ms P-R-T Axes : 073 071 062 degrees QTc Int : 439 ms Normal sinus rhythm Normal ECG Confirmed by ANTHONY DUMAS, NATE ([id number]), staff editor BHAVIK AGUILA ([id number]) on 12/08/2023 8:40:29 AM Referred By: Confirmed By:RICHARD CRUZ MD
--- NOTE | 2023-12-03 11:50 | EX.ED.DYSGE1 ---
HPI History of Present Illness Chief Complaint: Weakness Narrative Narrative: 53-year-old female with no significant past medical history presents with nausea and vomiting, generalized weakness, and coughing up white phlegm since yesterday evening. She relates history that she was spraying out a storage unit with pesticide. She is not sure if she inhaled anything. Last night she did not feel well and vomited food initially. This morning she started coughing up white frothy phlegm. Is not vomiting. She denies any abdominal pain or shortness of breath. States she feels generally weak and fatigued, and not quite right. She is unsure if spreading the pesticide without a mask caused her to inhaler and just any of the chemical. [facility] Medical History Arthritis Degenerative disc disease Home Medications ?Medication ?Instructions ?Recorded ?Last Taken ?Type NK 10/18/23 Unknown History Allergy/AdvReac Type Severity Reaction Status Date / Time levofloxacin (From Levaquin) Allergy Anaphylaxis Verified 12/03/23 11:31 Penicillins Allergy Anaphylaxis Verified 12/03/23 11:31 Social History Smoking Status: Current every day smoker tobacco type: cigarettes ROS ROS ED ROS Narrative Constitutional: No fever, no chills. Positive generalized weakness. Positive malaise. HEENT: No sore throat. No neck pain. No loss of vision. No rhinorrhea. Cardiovascular: No chest pain. No palpitations. No pedal edema. Respiratory: Positive cough of white frothy sputum, no shortness of breath. Abdominal: No abdominal pain. 1 episode of nausea and vomiting/vomiting food yesterday evening. Genitourinary: No dysuria. No hematuria. Musculoskeletal: No myalgias. No arthralgias. Neurologic: No headaches. No dizziness. No lightheadedness. Skin: No rash. No change in color. Psychiatric: No depression. No anxiety. EXAM Physical Exam Narrative Exam Narrative: Afebrile. Vital signs noted. Nontoxic-appearing. Regular rate and rhythm. Lungs are clear to auscultation bilaterally. Abdomen soft and nontender with normoactive bowel sounds. Neurological examination nonfocal and nonlateralizing. Awake, alert, and oriented. Ambulatory in emergency department. Const Vital Signs: 12/03/23 11:28 12/03/23 11:31 12/03/23 12:19 Temperature 96.8 F L Temperature Source Temporal Pulse Rate 96 88 Respiratory Rate 16 16 Respiratory Effort Normal Respiratory Pattern Normal Blood Pressure 112/82 H 94/63 Blood Pressure Mean 92 73 Pulse Ox 100 98 Oxygen Delivery Method Room Air 12/03/23 13:31 Temperature Temperature Source Pulse Rate 91 Respiratory Rate 16 Respiratory Effort Respiratory Pattern Blood Pressure 116/83 H Blood Pressure Mean 94 Pulse Ox 99 Oxygen Delivery Method Room Air MDM MDM MDM Narrative Medical decision making narrative: Differential diagnosis includes but not limited to pneumonitis versus gastritis versus pancreatitis. Her history and physical does not support pancreatitis, as she has nontender and she only vomited once. She states that she is not actually vomiting but has more coughing up spit. EKG and chest x-ray will be obtained. I do not think that she has an anticholinergic poisoning. She has normal blood pressure and she is not tachycardic. She is afebrile here. Pulse ox is 100% on room air without evidence of hypoxia. Chest x-ray interpreted by myself independently shows no evidence of a pneumothorax or pneumonia, no pneumonitis. I reviewed the radiology report which confirms my independent interpretation. To look for a cause of her weakness including dehydration, I obtain laboratory work and reviewed it. Review of her CBC shows normal white count of 6.3, hemoglobin normal at 12.9 so she is not anemic. Platelet count normal at 249. Electrolyte panel is grossly unremarkable with a normal sodium of 140 and potassium normal at 3.6 with chloride 107. Glucose is elevated at 110 with a normal anion gap/low at 4. LFTs are grossly unremarkable. High-sensitivity troponin is 4. I do not feel that she requires serial enzymes. With thought of CHF for the frothy sputum, BNP was obtained and is negative at 11.5. EKG was obtained interpreted by myself independently as normal sinus rhythm at 84 bpm without ectopy or acute ST changes. No STEMI. Repeat examination at approximately 1400 shows her resting comfortably and sleeping, easily awakened. At this point in time, I feel she can be discharged to follow-up with her primary care provider. Return instructions to the emergency department were reviewed. Disposition is discharged home in stable condition. History & Record Review Discussion w/independent historian: Patient Additional record(s) reviewed:: Prior labs Lab Data Attestation: I reviewed the patient's lab results. Labs: Laboratory Results - last 24 hr 12/03/23 12:05 WBC 6.3 RBC 4.29 Hgb 12.9 Hct 39.7 MCV 92.5 MCH 30.1 MCHC 32.5 RDW Std Deviation 48.6 H RDW Coeff of Otilio 14.5 Plt Count 249 MPV 10.0 Immature Gran % (Auto) 0.300 Neut % (Auto) 68.6 Lymph % (Auto) 22.0 [place] % (Auto) 7.5 Eos % (Auto) 1.0 Baso % (Auto) 0.6 Absolute Neuts (auto) 4.3 Absolute Lymphs (auto) 1.38 Nucleated RBC % 0 Sodium 140 Potassium 3.6 Chloride 107 Carbon Dioxide 29.0 Anion Gap 4 L BUN 14 Creatinine 1.05 H Estim Creat Clear Calc 58.01 Est GFR (MDRD) Af Amer 71 Est GFR (MDRD) Non-Af 58 L BUN/Creatinine Ratio 13.3 Glucose 110 H Calcium 8.9 Total Bilirubin 0.50 AST 17 ALT 16 Alkaline Phosphatase 71 Troponin I High Sens 4 B-Natriuretic Peptide 11.5 Total Protein 6.7 Albumin 3.3 Globulin 3.4 Albumin/Globulin Ratio 1.0 Lipase 30 Radiography Diagnostic Testing: Clinical Impression(s) from Imaging Studies Chest X-Ray 12/03/23 12:20 IMPRESSION: Hyperinflation and COPD. Electronically Signed: Franklin Hill MD at 12:45 EDT Reading Location ID and State: [facility] / [place] , Service support , Discharge Plan Triage Chief Complaint: Weakness Other Complaint: Nausea/Vomiting ED Provider: Yuri Montalvo Dx/Rx/DC Orders Clinical Impression: Generalized weakness, Fatigue Prescriptions: No Action NK Primary Care Provider: Macarena Galvan NP Referrals: Omer Bo MD [Med Staff - Hospice Nurse] - Activity Restrictions/Additional Instructions: Follow-up with your primary care provider in 2 to 3 days if not improving. Return with new or worsening symptoms. Print Language: Kyrgyz Disposition Disposition: Home, Self Care
--- NOTE | 2023-12-03 11:56 | NURSING ---
NO OLD EKGS
[2023-12-03 12:15] LABS: Absolute Lymphocyte Count 1.38 X10^3/uL (0.83-4.51); Absolute Neutrophil Count 4.3 X10^3/uL (2.0-7.7); Basophil# 0.04 X10^3/uL; Basophil% 0.6 % (0-1); Eosinophil# 0.06 X10^3/uL; Hematocrit 39.7 % (37-47); Hemoglobin 12.9 g/dL (12.0-15.0); Lymphocyte # 1.38 X10^3/ul (0.83-4.51); Mean Corp Hgb Conc 32.5 g/dL (32-36); Mean Corpuscular Hgb 30.1 pg (27.0-32.0); Mean Corpuscular Volume 92.5 fL (81-99); Monocyte# 0.47 X10^3/uL; Monocyte% 7.5 % (0-10); NRBC Flagged by Analyzer 0 % (0-5); Neutrophil # 4.31 X10^3/uL (2.7-7.7); Neutrophil % 68.6 % (47-70); Platelet Count 249 K/mm3 (150-450); RBC Distribution Width CV 14.5 % (11.6-14.6); RBC Distribution Width SD 48.6 fl (35.1-43.9); Red Blood Count 4.29 M/mm3 (4.2-5.4); White Blood Count 6.3 K/mm3 (4.4-11.0)
--- NOTE | 2023-12-03 12:20 | RAD_ITS ---
STUDY: X-RAY CHEST REASON FOR EXAM: Female, 53 years old. Cough . Weakness. TECHNIQUE: PA and lateral views of the chest. COMPARISON: Comparison is made with prior study February 18, 2023. FINDINGS: There is hyperinflation of the lungs consistent with chronic obstructive lung disease (COPD). There is no demonstrated pleural abnormality. Normal size heart. Normal mediastinum and sol. Normal visualized pulmonary arteries. There is atherosclerotic calcification of the aortic arch with tortuosity. Normal visualized thoracic spine. Normal visualized ribs, clavicles, and shoulders. There is no demonstrated abnormality of the visualized soft tissue structures of the upper abdomen. RAD/Chest PA and Lateral IMPRESSION: Hyperinflation and COPD. Electronically Signed: Franklin Hill MD at 12:45 EDT ,
[2023-12-03 12:33] LABS: AST(SGOT) 17 U/L (15-37); Alanine Aminotransfer ALT/SGPT 16 U/L (13-56); Albumin, Serum 3.3 g/dL (3.2-5.0); Alkaline Phosphatase 71 U/L (45-117); Anion Gap 4 (5-15); BUN 14 mg/dL (7-18); BUN/Creat Ratio 13.3 RATIO (10-20); Calcium,Total 8.9 mg/dL (8.5-10.1); Chloride 107 mmol/L (98-107); Creatinine, Serum 1.05 mg/dL (0.55-1.02); EST Glomerular Filtration Rate 58 mL/min (>60); Est Glom Filt Rate - Afr Amer 71 mL/min (>60); Estimated Creatinine Clearance 58.01 ml/min; Globulin 3.4 g/dL (2.2-4.2); Glucose 110 mg/dL (74-106); Lipase 30 U/L (13-75); Potassium 3.6 mmol/L (3.5-5.1); Protein, Total 6.7 g/dL (6.4-8.2); Sodium Level 140 mmol/L (136-145); Troponin-I HS 4 pg/mL (3.0-54.0)
[2023-12-03 12:49] LABS: BNP,B-Type NATRIURETIC PEPTIDE 11.5 pg/mL (0-100)
[2023-12-03 13:31] VITALS: BP 116/83; PULSE 91; RESP 16; O2SAT 99
[2023-12-03 14:11] VITALS: BP 115/95; PULSE 87; RESP 16; TEMP 36.6; O2SAT 100
== END 2023-12-03 14:11 | disposition home or self-care (01) ==
PROVIDERS: Emergency Provider Emergency Medicine; PCP Internal Medicine; Visit Provider Emergency Medicine
DX: R53.1 Weakness (principal); R53.83 Other fatigue; F17.210 Nicotine dependence, cigarettes, uncomplicated
CPT/HCPCS: 71046; 80053; 83690; 83880; 84484; 85025; 93005; 99284; A4216

== ENCOUNTER 2024-02-07 06:27 | Emergency (ER) | payer MEDICAID, SELFPAY ==
[2024-02-07 06:27] VITALS: BP 136/97; PULSE 95; RESP 16; TEMP 36.1; O2SAT 94; BMI 24.7
--- NOTE | 2024-02-07 06:39 | EDS_ITS ---
HPI History of Present Illness Chief Complaint: Headache Narrative Narrative: 53-year-old female who denies significant past medical history presents with feelings of nausea and gaggy. She feels like she is coming down with something. Her symptoms started approximately 2-1/2 hours ago. States she had to sit in her car because she did not feel well. She denies any chest pain or cough. She might feel feverish but is not sure. She is nauseated and may have spit up a little when she arrived to the emergency department, but denies any abdominal pain. No dysuria or hematuria, no constipation with last normal bowel movement being yesterday. She may have a slight headache as well and states that she is sick. She is somewhat vague in her complaints about not feeling well. [facility] Medical History Arthritis Degenerative disc disease Home Medications ?Medication ?Instructions ?Recorded ?Last Taken ?Type NK 10/18/23 Unknown History Allergy/AdvReac Type Severity Reaction Status Date / Time levofloxacin (From [email or web address]) Allergy Anaphylaxis Verified 02/07/24 06:32 Penicillins Allergy Anaphylaxis Verified 02/07/24 06:32 Social History Smoking Status: Current every day smoker tobacco type: cigarettes ROS ROS ED ROS Narrative Constitutional: No fever, no chills. HEENT: No sore throat. No neck pain. No loss of vision. No rhinorrhea. Cardiovascular: No chest pain. No palpitations. No pedal edema. Respiratory: No cough, no shortness of breath. Abdominal: No abdominal pain. Positive nausea. Feels gaggy. 1 small episode of vomiting. Genitourinary: No dysuria. No hematuria. Musculoskeletal: No myalgias. No arthralgias. Neurologic: Positive headaches. No dizziness. No lightheadedness. Skin: No rash. No change in color. Psychiatric: No depression. No anxiety. EXAM Physical Exam Narrative Exam Narrative: Afebrile. Vital signs noted. HEENT: Normocephalic. Atraumatic. PERRL, EOMI. Neck soft and supple. No point tenderness or step off. Cardiovascular: Regular rate and rhythm. No murmurs, rubs, or gallops appreciated. Respiratory: No tachypnea. Lungs clear to auscultation bilaterally. Gastrointestinal: Abdomen soft, nontender, with normoactive bowel sounds. No rebound or guarding. Neurological: Awake. Alert. Nonfocal, nonlateralizing. Ambulatory in ED without difficulty to bathroom. Skin: No rash. Normal color. No pallor. Musculoskeletal: No pedal edema. Full range of motion extremities. Const Vital Signs: 02/07/24 06:27 Temperature 97 F L Temperature Source Temporal Pulse Rate 95 Respiratory Rate 16 Blood Pressure 136/97 H Blood Pressure Mean 110 Pulse Ox 94 Oxygen Delivery Method Non-Rebreather MDM MDM MDM Narrative Medical decision making narrative: Differential diagnosis includes but not limited to gastritis versus pancreatitis versus electrolyte abnormality/dehydration. Symptom onset was only 2-1/2 hours ago. She has a nontender abdomen so I do not feel CT imaging is indicated. She will be administered ondansetron and Toradol for headache. I do not feel she needs CT imaging of the brain because she has a normal neurological examination that is nonfocal and nonlateralizing. She did states she feels more dehydrated, but I feel she would require more of a p.o. challenge given the IV fluid shortage. She is not tachycardic, nor she hypotensive. I will obtain a CBC, CMP, lipase, and UA. I did review her prior ED visits and she has had episodes of nausea and vomiting. I reviewed her laboratory work, and she has normal white count of 10.0, hemoglobin normal at 13.9, platelet count 245. CMP is remarkable for a chloride of 108 which I think is nonspecific, normal BUN of 16 and normal creatinine of 1.0, sodium normal at 138, no evidence of dehydration. AST is low at 14 and ALT also 14. Lipase normal at 34 so I doubt pancreatitis. Urinalysis currently pending. At this point in time, patient will be signed out to the oncoming physician who will reassess the patient but I anticipate she can be discharged after medications. She is in stable condition. History & Record Review Discussion w/independent historian: Patient Additional record(s) reviewed:: Prior ED visit (Previous episodes of nausea/nausea and vomiting) Lab Data Attestation: I reviewed the patient's lab results. Labs: Laboratory Results - last 24 hr 02/07/24 06:40 WBC 10.0 RBC 4.65 Hgb 13.9 Hct 43.2 MCV 92.9 MCH 29.9 MCHC 32.2 RDW Std Deviation 45.7 H RDW Coeff of Otilio 13.3 Plt Count 245 MPV 10.2 Immature Gran % (Auto) 0.300 Neut % (Auto) 72.1 H Lymph % (Auto) 21.0 [place] % (Auto) 5.4 Eos % (Auto) 0.8 Baso % (Auto) 0.4 Absolute Neuts (auto) 7.2 Absolute Lymphs (auto) 2.10 Nucleated RBC % 0 Sodium 138 Potassium 3.9 Chloride 108 H Carbon Dioxide 27.0 Anion Gap 2 L BUN 16 Creatinine 1.01 Estim Creat Clear Calc 60.30 Est GFR (MDRD) Af Amer 74 Est GFR (MDRD) Non-Af 61 BUN/Creatinine Ratio 15.8 Glucose 115 H Calcium 9.0 Total Bilirubin 0.30 AST 14 L ALT 14 Alkaline Phosphatase 73 Total Protein 6.7 Albumin 3.5 Globulin 3.2 Albumin/Globulin Ratio 1.1 Lipase 34 Discharge Plan Triage Chief Complaint: Headache Other Complaint: Nausea/Vomiting ED Provider: Yuri Montalvo Dx/Rx/DC Orders Prescriptions: No Action NK Primary Care Provider: Macarena Galvan NP Referrals: Macarena Galvan [employer] PROCESSING SYSTEMS PROJECT PLANNER, DATA PROCESSING SYSTEMS PROJECT PLANNER-C [Primary Care Provider] - Print Language: Estonian
[2024-02-07 06:50] LABS: Absolute Neutrophil Count 7.2 X10^3/uL (2.0-7.7); Basophil# 0.04 X10^3/uL; Basophil% 0.4 % (0-1); Eosinophil# 0.08 X10^3/uL; Eosinophils% 0.8 % (0-5); Hematocrit 43.2 % (37-47); Hemoglobin 13.9 g/dL (12.0-15.0); Mean Corp Hgb Conc 32.2 g/dL (32-36); Mean Corpuscular Hgb 29.9 pg (27.0-32.0); Mean Corpuscular Volume 92.9 fL (81-99); Mean Platelet Vol. 10.2 fl (6.2-12.0); Monocyte# 0.54 X10^3/uL; Monocyte% 5.4 % (0-10); NRBC Flagged by Analyzer 0 % (0-5); Neutrophil % 72.1 % (47-70); Platelet Count 245 K/mm3 (150-450); RBC Distribution Width CV 13.3 % (11.6-14.6); RBC Distribution Width SD 45.7 fl (35.1-43.9); Red Blood Count 4.65 M/mm3 (4.2-5.4)
[2024-02-07] MEDS: Ondansetron 4 MG/2 ML Vial IV (06:50)
[2024-02-07] MEDS: Ketorolac 30 MG/ML Syringe 15 MG IV (06:50)
[2024-02-07 07:00] LABS: Bacteria 0 SEEN /hpf (None Seen); Mucous, Urine 0 SEEN /hpf (<or=2+); Red Blood Cells-Urine 0 SEEN /hpf (0-5); White Blood Cells 0 SEEN /hpf (0-5)
[2024-02-07 07:09] LABS: ALB/GLOB Ratio 1.1 RATIO (0.9-2.4); AST(SGOT) 14 U/L (15-37); Alanine Aminotransfer ALT/SGPT 14 U/L (13-56); Albumin, Serum 3.5 g/dL (3.2-5.0); Alkaline Phosphatase 73 U/L (45-117); Anion Gap 2 (5-15); BUN 16 mg/dL (7-18); BUN/Creat Ratio 15.8 RATIO (10-20); Chloride 108 mmol/L (98-107); Creatinine, Serum 1.01 mg/dL (0.55-1.02); EST Glomerular Filtration Rate 61 mL/min (>60); Est Glom Filt Rate - Afr Amer 74 mL/min (>60); Globulin 3.2 g/dL (2.2-4.2); Glucose 115 mg/dL (74-106); Lipase 34 U/L (13-75); Potassium 3.9 mmol/L (3.5-5.1); Protein, Total 6.7 g/dL (6.4-8.2); Sodium Level 138 mmol/L (136-145)
[2024-02-07 07:13] LABS: Color, Urine Yellow (Yellow); Glucose, Dipstick Normal (Normal); Ketone-Dipstick Negative (Negative); Leukocyte Esterase-Dipstick Negative /ul (Negative); Nitrite-Dipstick Negative (Negative); Occult Blood-Urine 10 /ul (Negative); Protein-Dipstick 15 mg/dl (Negative); Specific Gravity, Urine 1.025 (1.002-1.030); Urine Bilirubin Dipstick Negative (Negative); Urine Clarity Clear (Clear); Urine Urobilinogen Normal (Normal)
[2024-02-07 07:22] LABS: Squamous Epithelial Cells - UA 0-5 SEEN /hpf (5-10)
[2024-02-07 08:04] VITALS: BP 115/75; PULSE 62; RESP 15; TEMP 36.6; O2SAT 98
== END 2024-02-07 08:11 | disposition home or self-care (01) ==
PROVIDERS: Emergency Provider Emergency Medicine; PCP Internal Medicine; Visit Provider Emergency Medicine
DX: R51.9 Headache, unspecified (principal); R11.2 Nausea with vomiting, unspecified; F17.210 Nicotine dependence, cigarettes, uncomplicated
CPT/HCPCS: 80053; 81001; 83690; 85025; 96374; 96375; 99284; A4216; J2405

== ENCOUNTER 2024-08-11 11:38 | Emergency (ER) | payer MEDICAID, SELFPAY ==
[2024-08-11 11:39] VITALS: BP 112/78; PULSE 96; RESP 16; TEMP 36.4; O2SAT 99; BMI 25.0
--- NOTE | 2024-08-11 12:02 | CT_ITS ---
PROCEDURE: ABDOMEN/PELVIS W IV CONT ONLY 08/11/2024 REASON FOR EXAM: ABDOMINAL PAIN History of bladder prolapse. Fullness in the pelvis. TECHNIQUE: Abdomen and pelvis CT with intravenous contrast. Coronal and Sagittal reconstruction series were provided. PATIENT PREPARATION: Per protocol ORAL CONTRAST TYPE: None. CONTRAST: Isovue-300 VOLUME: 100 mL 12.5 gauge IV One or more dose reduction techniques were used (e.g., Automated exposure control, adjustment of the mA and/or kV according to patient size, use of iterative reconstruction technique. RADIATION DOSE SUMMARY: CTDlvol: 12.5 mGy DLP: 1195.59 mGycm COMPARISON: None FINDINGS: Lung bases: Mild dependent atelectasis Liver: Normal size. No mass. Gallbladder: No evidence of gallstones. Spleen: Normal size. Pancreas: Normal size without evidence of mass surrounding inflammation or ductal dilation. Adrenals: Unremarkable Kidneys: Unremarkable Bladder: There is evidence of a cystocele. Reproductive Organs: Prior hysterectomy. Bowel: Colonic diverticulosis without diverticulitis. Fecal material is seen in the rectum. Moderate amount of residual food particles within the stomach. Appendix: The appendix is not identified. There is no inflammatory process identified in the right lower quadrant to suggest appendicitis. Lymph nodes: Unremarkable. Vasculature: Mild diffuse atherosclerotic calcifications are noted. Peritoneum / Retroperitoneum: Unremarkable. Small benign-appearing inguinal lymph nodes. Bones: Mild degenerative changes of the spine. CT/Abdomen/Pelvis W IV Cont ONLY IMPRESSION: Status post hysterectomy. Cystocele. Sigmoid diverticula with no radiographic evidence of diverticulitis. Reading Location: [facility]
--- NOTE | 2024-08-11 12:06 | EX.ED.DYSGE1 ---
HPI <ALMA ROSA Michelle - Last Filed: 08/11/24 13:15> History of Present Illness Chief Complaint: Abd Pain Narrative Narrative: Patient is a 53-year-old female who presents to the emergency department for abdominal pain, back pain. Patient states that she had a hysterectomy several years ago. She has had issues with her bladder however they have not been having any difficulty of the last several years. Over the last week, she has been having lower abdominal pain, back pain. She states she cannot get into a primary care or urology over the next month. She is here for evaluation. PFSH <ALMA ROSA Michelle - Last Filed: 08/11/24 13:15> [facility] Medical History Arthritis Degenerative disc disease Home Medications ?Medication ?Instructions ?Recorded ?Last Taken ?Type NK 10/18/23 Unknown History Allergy/AdvReac Type Severity Reaction Status Date / Time levofloxacin (From Levaquin) Allergy Anaphylaxis Verified 02/07/24 06:32 Penicillins Allergy Anaphylaxis Verified 02/07/24 06:32 Social History Smoking Status: Current every day smoker tobacco type: cigarettes ROS <ALMA ROSA Michelle - Last Filed: 08/11/24 13:15> ROS ED ROS Narrative Constitutional: Negative for weight loss, weakness. Positive for fever and chills Eyes: Negative for vision loss, vision change, double vision ENT: Negative for any sore throat, ear pain, congestion Cardiovascular: Negative for any chest pain, tightness, palpitations Respiratory: Negative for any cough, sputum production, hemoptysis, dyspnea, dyspnea on exertion, orthopnea Gastrointestinal: Negative for any nausea, vomiting, diarrhea, constipation, blood in stool, blood in vomit. Positive for abdominal pain : Negative for any urinary frequency, retention, blood in urine. Positive pain with urination Muscle skeletal: Negative for any neck pain, back pain Neurological: Negative for any headache, syncope, dizziness Skin: Negative for any rashes, itching, abrasions, lacerations Psychiatric: Negative for any depression, anxiety, stress, suicidal ideation, homicidal ideation Hematologic: Negative for any excessive bruising, easy bleeding EXAM <ALMA ROSA Michelle - Last Filed: 08/11/24 13:15> Physical Exam Narrative Exam Narrative: Vital signs reviewed. HEET: Head normocephalic atraumatic, TMs clear bilaterally. Posterior pharynx is clear, moist mucous membranes. Nares clear bilaterally. Neck: Supple with no lymphadenopathy or tenderness. No signs of meningismus. Cardiac: Regular rate and rhythm no murmurs gallops or rubs, equal peripheral pulses bilaterally. Respiratory: Lungs clear to auscultation bilaterally. No chest tenderness. Abdomen: Soft nondistended. No abdominal bruit or pulsatile masses. No hepatosplenomegaly. During my abdominal exam, I did press with my hand just above the umbilicus, patient states that she had such severe pain, she does not want me to touch her again. Active bowel sounds in all quadrants. No peritoneal signs. Extremities: No peripheral edema, no signs of gross trauma or deformity. Active full range of motion of all extremities. Neuro: Cranial nerves II through XII intact, no focal neurological deficits. Skin: Clean dry and intact with no rash, purpura, petechiae, vesicles or pustules. Backs/flank: No CVA tenderness, no midline spinal tenderness, no deformity. Psych: Normal mood and affect. No SI, HI or acute psychosis. Const Vital Signs: 08/11/24 11:39 Temperature 97.6 F L Temperature Source Temporal Pulse Rate 96 Respiratory Rate 16 Blood Pressure 112/78 Blood Pressure Mean 89 Pulse Ox 99 Oxygen Delivery Method Room Air Positive well nourished and well developed General Appearance ED: well developed <Dr. Philip Stiles DO - Last Filed: 08/11/24 13:25> Physical Exam Const Vital Signs: 08/11/24 11:39 Temperature 97.6 F L Temperature Source Temporal Pulse Rate 96 Respiratory Rate 16 Blood Pressure 112/78 Blood Pressure Mean 89 Pulse Ox 99 Oxygen Delivery Method Room Air MDM <ALMA ROSA Michelle - Last Filed: 08/11/24 13:15> MDM Lab Data Labs: Laboratory Results - last 24 hr 08/11/24 08/11/24 11:51 12:14 WBC 6.2 RBC 4.47 Hgb 13.7 Hct 40.9 MCV 91.5 MCH 30.6 MCHC 33.5 RDW Std Deviation 45.8 H RDW Coeff of Otilio 13.4 Plt Count 267 MPV 10.4 Immature Gran % (Auto) 0.500 Neut % (Auto) 51.7 Lymph % (Auto) 39.3 [place] % (Auto) 6.3 Eos % (Auto) 1.4 Baso % (Auto) 0.8 Absolute Neuts (auto) 3.2 Absolute Lymphs (auto) 2.45 Nucleated RBC % 0 Sodium 142 Potassium 4.7 Chloride 106 Carbon Dioxide 26.4 Anion Gap 9 BUN 19 Creatinine 1.22 H Estim Creat Clear Calc 49.92 L Est GFR (MDRD) Non-Af 53 L BUN/Creatinine Ratio 15.3 Glucose 85 Calcium 9.7 Total Bilirubin 0.29 AST 24 ALT 14 Alkaline Phosphatase 83 Total Protein 6.9 Albumin 4.2 Globulin 2.7 Albumin/Globulin Ratio 1.6 Lipase 25 Urine Color Yellow Urine Clarity Clear Urine pH 6.0 Ur Specific Sheridan 1.025 Urine Protein 30 H Urine Glucose (UA) Normal Urine Ketones Negative Urine Occult Blood Negative Urine Nitrite Negative Urine Bilirubin Negative Urine Urobilinogen 1 H Ur Leukocyte Esterase Negative Urine RBC 0 SEEN Urine WBC 0 SEEN Ur Squamous Epith Cells 0-5 SEEN Urine Bacteria 1+ Urine Mucus 2+ Radiography Diagnostic Testing: Clinical Impression(s) from Imaging Studies Abdomen/Pelvis CT 08/11/24 12:02 IMPRESSION: Status post hysterectomy. Cystocele. Sigmoid diverticula with no radiographic evidence of diverticulitis. Reading Location: [facility] Treatment and Re-Evaluation :: Differential diagnosis includes however is not limited to: Bowel obstruction, cystitis, colitis, UTI, pyelonephritis, prolapsed bladder Patient appears generally well, vital signs are stable, patient is nontoxic-appearing. Presenting to the emerged part with complaints of lower abdominal pain. Patient will receive basic laboratory values including CBC CMP, patient will receive urinalysis, CT scan of the abdomen pelvis with IV contrast. Patient will receive IV fluids, Zofran Toradol. All radiologic examinations were read, reviewed by the emergency department attending. From these reads, a plan of care will be put in place. Patient's CBC was unremarkable, patient's chemistries show a creatinine 1.2, that is baseline for the patient, patient's lipase was negative. CT scan of the abdomen pelvis shows status post hysterectomy, cystocele, sigmoid diverticula with no radiographic evidence of any diverticulitis. Patient's urinalysis showed 1+ bacteria however 05 squamous cells, negative nitrites, negative leukocytes. At this time, patient will need to follow-up outpatient. I be given the patient Dr. Jackson. Patient instructed return for any worsening symptoms, all questions answered, stable for discharge. <Dr. Philip Stiles, DO - Last Filed: 08/11/24 13:25> MDM History & Record Review Discussion w/independent historian: Patient Lab Data Attestation: I reviewed the patient's lab results. Labs: Laboratory Results - last 24 hr 08/11/24 08/11/24 11:51 12:14 WBC 6.2 RBC 4.47 Hgb 13.7 Hct 40.9 MCV 91.5 MCH 30.6 MCHC 33.5 RDW Std Deviation 45.8 H RDW Coeff of Otilio 13.4 Plt Count 267 MPV 10.4 Immature Gran % (Auto) 0.500 Neut % (Auto) 51.7 Lymph % (Auto) 39.3 [place] % (Auto) 6.3 Eos % (Auto) 1.4 Baso % (Auto) 0.8 Absolute Neuts (auto) 3.2 Absolute Lymphs (auto) 2.45 Nucleated RBC % 0 Sodium 142 Potassium 4.7 Chloride 106 Carbon Dioxide 26.4 Anion Gap 9 BUN 19 Creatinine 1.22 H Estim Creat Clear Calc 49.92 L Est GFR (MDRD) Non-Af 53 L BUN/Creatinine Ratio 15.3 Glucose 85 Calcium 9.7 Total Bilirubin 0.29 AST 24 ALT 14 Alkaline Phosphatase 83 Total Protein 6.9 Albumin 4.2 Globulin 2.7 Albumin/Globulin Ratio 1.6 Lipase 25 Urine Color Yellow Urine Clarity Clear Urine pH 6.0 Ur Specific Sheridan 1.025 Urine Protein 30 H Urine Glucose (UA) Normal Urine Ketones Negative Urine Occult Blood Negative Urine Nitrite Negative Urine Bilirubin Negative Urine Urobilinogen 1 H Ur Leukocyte Esterase Negative Urine RBC 0 SEEN Urine WBC 0 SEEN Ur Squamous Epith Cells 0-5 SEEN Urine Bacteria 1+ Urine Mucus 2+ Radiography Diagnostic Testing: Clinical Impression(s) from Imaging Studies Abdomen/Pelvis CT 08/11/24 12:02 IMPRESSION: Status post hysterectomy. Cystocele. Sigmoid diverticula with no radiographic evidence of diverticulitis. Reading Location: [facility] Treatment and Re-Evaluation :: Differential diagnosis includes however is not limited to: Bowel obstruction, cystitis, colitis, UTI, pyelonephritis, prolapsed bladder Patient appears generally well, vital signs are stable, patient is nontoxic-appearing. Presenting to the emerged part with complaints of lower abdominal pain. Patient will receive basic laboratory values including CBC CMP, patient will receive urinalysis, CT scan of the abdomen pelvis with IV contrast. Patient will receive IV fluids, Zofran Toradol. All radiologic examinations were read, reviewed by the emergency department attending. From these reads, a plan of care will be put in place. Patient's CBC was unremarkable, patient's chemistries show a creatinine 1.2, that is baseline for the patient, patient's lipase was negative. CT scan of the abdomen pelvis shows status post hysterectomy, cystocele, sigmoid diverticula with no radiographic evidence of any diverticulitis. Patient's urinalysis showed 1+ bacteria however 05 squamous cells, negative nitrites, negative leukocytes. At this time, patient will need to follow-up outpatient. I be given the patient Dr. Jackson. Patient instructed return for any worsening symptoms, all questions answered, stable for discharge. I have personally performed a face to face assessment of the patient and have reviewed the JORGE Note. I performed a substantive portion of the visit including all aspects of the following. My seals findings include: History is 53-year-old female presenting to the emergency room with lower abdominal pain and back pain. Patient states that she had a hysterectomy back in 2009 and believes that she had a dropped bladder at that time but it went away. She states over the past week or so she has had improvement of her prolapse. She states that she has had some diarrhea recently. She states she has degenerative disc disease in her back and buttock and that is what her back pain is for. She states she is concerned for UTI. Patient does. Difficult to get history from as she keeps saying the same things over and over again to different questions. Exam is minimally tender abdomen but it is soft no guarding or rebound. No CVA tenderness. Normal bowel sounds. She is in no acute distress. Medical Decison Making patient had blood work urine and CT was obtained. There is evidence of a cystocele. I think the patient can be discharged home and follow-up with urology to talk about bladder prolapse. I do not see evidence of acute emergency including retention at this point. Urine Sent for culture. Discharge Plan Triage Chief Complaint: Abd Pain Other Complaint: Female C/O ED Midlevel Provider: Mitesh Morrow ED Provider: Philip Stiles Dx/Rx/DC Orders Clinical Impression: Abdominal pain, Cystocele Instructions: Abdominal Pain, Cystocele Prescriptions: No Action NK Primary Care Provider: Macarena Galvan NP Referrals: Rebekah Jackson MD [Med Staff - Active Staff] - Macarena Galvan NP, [employer] [Primary Care Provider] - Activity Restrictions/Additional Instructions: Continue to follow-up outpatient. Print Language: Estonian Disposition Disposition: Home, Self Care
[2024-08-11] MEDS: 0.9% Normal Saline (1000mL) 1,000 ML 999 ML IV (12:13)
[2024-08-11] MEDS: Ondansetron 4 MG/2 ML Vial IV (12:13)
[2024-08-11] MEDS: Ketorolac 15 MG/ML Vial IV (12:13)
[2024-08-11 12:21] LABS: Red Blood Cells-Urine 0 SEEN /hpf (0-5); White Blood Cells 0 SEEN /hpf (0-5)
[2024-08-11 12:22] LABS: Absolute Lymphocyte Count 2.45 X10^3/uL (0.83-4.51); Absolute Neutrophil Count 3.2 X10^3/uL (2.0-7.7); Basophil# 0.05 X10^3/uL; Basophil% 0.8 % (0-1); Eosinophil# 0.09 X10^3/uL; Eosinophils% 1.4 % (0-5); Hematocrit 40.9 % (37-47); Hemoglobin 13.7 g/dL (12.0-15.0); Lymphocyte # 2.45 X10^3/ul (0.83-4.51); Lymphocyte % 39.3 % (19-41); Mean Corp Hgb Conc 33.5 g/dL (32-36); Mean Corpuscular Hgb 30.6 pg (27.0-32.0); Mean Corpuscular Volume 91.5 fL (81-99); Mean Platelet Vol. 10.4 fl (6.2-12.0); Monocyte# 0.39 X10^3/uL; Monocyte% 6.3 % (0-10); NRBC Flagged by Analyzer 0 % (0-5); Neutrophil # 3.22 X10^3/uL (2.7-7.7); Neutrophil % 51.7 % (47-70); Platelet Count 267 K/mm3 (150-450); RBC Distribution Width CV 13.4 % (11.6-14.6); RBC Distribution Width SD 45.8 fl (35.1-43.9); Red Blood Count 4.47 M/mm3 (4.2-5.4); White Blood Count 6.2 K/mm3 (4.4-11.0)
[2024-08-11 12:23] LABS: Color, Urine Yellow (Yellow); Glucose, Dipstick Normal (Normal); Ketone-Dipstick Negative (Negative); Leukocyte Esterase-Dipstick Negative /ul (Negative); Nitrite-Dipstick Negative (Negative); Occult Blood-Urine Negative /ul (Negative); Protein-Dipstick 30 mg/dl (Negative); Specific Gravity, Urine 1.025 (1.002-1.030); Urine Bilirubin Dipstick Negative (Negative); Urine Clarity Clear (Clear); Urine Urobilinogen 1 mg/dl (Normal)
[2024-08-11 12:50] LABS: Bacteria 1+ /hpf (None Seen); Mucous, Urine 2+ /hpf (<or=2+); Squamous Epithelial Cells - UA 0-5 SEEN /hpf (5-10)
[2024-08-11 12:59] LABS: Lipase 25 U/L (13-75)
[2024-08-11 13:01] LABS: ALB/GLOB Ratio 1.6 RATIO (0.9-2.4); AST(SGOT) 24 U/L (<=31); Alanine Aminotransfer ALT/SGPT 14 U/L (<=34); Albumin, Serum 4.2 g/dL (3.5-5.0); Alkaline Phosphatase 83 U/L (35-104); Anion Gap 9 (5-15); BUN 19 mg/dL (4-19); BUN/Creat Ratio 15.3 RATIO (10-20); Calcium,Total 9.7 mg/dL (7.6-11.0); Carbon Dioxide 26.4 mmol/L (21.0-32.0); Chloride 106 mmol/L (98-108); Creatinine, Serum 1.22 mg/dL (0.70-1.20); EST Glomerular Filtration Rate 53 (>60); Estimated Creatinine Clearance 49.92 ml/min (50-250); Globulin 2.7 g/dL (2.2-4.2); Glucose 85 mg/dL (70-99); Potassium 4.7 mmol/L (3.3-5.1); Protein, Total 6.9 g/dL (5.9-8.4); Sodium Level 142 mmol/L (133-145); Total Bilirubin 0.29 mg/dL (0.00-1.30)
--- NOTE | 2024-08-11 13:22 | ED.RN ---
patient standing in room, states upset with results that CT scan did not show prolapse. understands to call urologist at discharge. refused vital signs. states she is still having pain.
== END 2024-08-11 13:24 | disposition home or self-care (01) ==
PROVIDERS: Nurse Practitioner; Emergency Provider Emergency Medicine; PCP Internal Medicine; Visit Provider Emergency Medicine
DX: N99.3 Prolapse of vaginal vault after hysterectomy (principal); F17.210 Nicotine dependence, cigarettes, uncomplicated
CPT/HCPCS: 74177; 80053; 81001; 83690; 85025; 96361; 96374; 96375; 99284; Q9967; A4216; J2405

== ENCOUNTER → 2025-03-04 | Outpatient (CLI) | payer MEDICAID, SELFPAY ==
--- NOTE | 2025-03-04 09:23 | MRI_ITS ---
PROCEDURE: MRI/Lower Ext/No Jt/w/o
== END | disposition home or self-care (01) ==
LOC: MRI 09:18
PROVIDERS: PCP Internal Medicine; Referring Provider Podiatrist Foot & Ankle Surgery; Visit Provider Podiatrist Foot & Ankle Surgery
DX: M77.8 Other enthesopathies, not elsewhere classified (principal)
CPT/HCPCS: 73718